=== PATIENT | female | born 1965 ===

== ENCOUNTER 2024-06-16 14:03 | Outpatient (CLI) | payer OTHER, SELFPAY ==
[2024-06-16 14:50] LABS: Basophils Absolute Auto 0.1 K/mm3 (0.0-0.1); Basophils Percent Auto 0.5 % (0.2-1.2); Eosinophils Absolute Auto 0.2 K/mm3 (0-0.3); Eosinophils Percent Auto 1.4 % (0-4.4); Hematocrit 41.7 % (37.0-47.0); Hemoglobin 13.9 g/dL (12.0-15.0); Immature Granulocyte Absolute 0.02 K/mm3 (0.00-0.031); Immature Granulocyte Percent A 0.2 % (0-0.5); Lymphocytes Absolute Auto 3.68 K/mm3 (0.9-3.2); Lymphocytes Percent Auto 35.1 % (18.3-44.2); Mean Corpuscular HGB Conc 33.3 g/dl (32-36); Mean Corpuscular Hemoglobin 30.8 pg (26-34); Mean Corpuscular Volume 92.5 fl (80-100); Mean Platelet Volume 10.5 fl (7.4-10.4); Monocytes Absolute Auto 0.8 K/mm3 (0.1-0.6); Monocytes Percent Auto 7.3 % (2.6-8.5); Neutrophils Absolute Auto 5.8 K/mm3 (1.3-6.7); Neutrophils Percent Auto 55.5 % (45.5-73.1); Platelet Count Result 293 k/mm3 (150-375); Red Blood Count 4.51 M/mm3 (4.2-5.4); Red Cell Distribution Width 12.7 % (11.5-14.5); White Blood Count 10.5 K/mm3 (4.5-10.0)
--- OUTSIDE RECORDS SUMMARY | 2024-06-16 15:56 | XMS_ITS | Patient Health Summary ---
Author Organization [facility] [employer] Address [address] [place] [address] Care Team Providers Care Crosstie Inspector Name Role Phone Unavailable Primary Care Provider Unavailabl e Note from [facility],non-owned Affiliates and Associated Physician Practices is amultiple site organization consisting of ambulatory clinics and hospital sitesin [place], [place], [place] and [place]. This disclosure is being madepursuant to the Care Everywhere program and may not contain all information available regarding this patient. Last updated 17.[facility] Allergies * Advair Diskus(Palpitations) -Low Criticality * Azithromycin(Anaphylaxis,Unknown) -High Criticality * Bupropion(Other) -High Criticality * Choline Fenofibrate(Nausea and/or Vomiting) -High Criticality * Codeine(Unknown) * Duloxetine(Other) -High Criticality * Escitalopram(Unknown,Other) -Low Criticality * Hydrocodone(Unknown) * Hydrocodone-Acetaminophen(Nausea and/or Vomiting) -High Criticality * Levofloxacin(Rash) -Medium Criticality * Lincocin(Unknown) -High Criticality * Lovastatin(Other) -High Criticality * Montelukast(Palpitations) -Low Criticality * Niacin(Rash) -Medium Criticality * Oxytetracycline(Other) -High Criticality * Penicillins(Anaphylaxis,Rash) -High Criticality * Pneumococcal Vaccine(Other) -Low Criticality * Vancomycin(Other) -High Criticality Medications * Be aware that medications may not be up to date on this document. Alwaysverify current medications with the patient. * omeprazole EC (PriLOSEC OTC) 20 MG tablet every 24 hours Social History Tobacco Use Types Packs/Day Years Used Date Smoking Tobacco: Never Smokeless Tobacco: Never Sex and Gender Information Value Date Recorded Sex Assigned at Not on file Gender Identity Not on file Sexual Orientation Not on file Last Filed Vital Signs Vital Sign Reading Time Taken Comments Blood Pressure 123/57 12/21/2021 5:48 PM CDT Pulse 60 12/21/2021 5:48 PM CDT Temperature 37.7 C (99.9 F) 12/21/2021 5:48 PM CDT Respiratory Rate 18 12/21/2021 5:48 PM CDT Oxygen Saturation 100% 12/21/2021 5:48 PM CDT Inhaled Oxygen Concentration - - Weight 78.9 kg (174 lb) 12/21/2021 5:48 PM CDT Height 157.5 cm (5' 2 ) 12/21/2021 5:48 PM CDT Body Mass Index 31.83 12/21/2021 5:48 PM CDT Procedures * XR KNEE BILAT 4VW OR MORE(Performed 03/09/2024) Performed for Pain in both knees, unspecified chronicity * STREP A SCREEN - POCT (IP) URGENT CARE(Performed 12/21/2021) Performed for Fever, unspecified fever cause * SARS-COV-2 (COVID-19) AG (IP) POCT(Performed 12/21/2021) Performed for Fever, unspecified fever cause Results * XR Knee Bilat 4Vw or More (03/09/2024 2:24 PM SILK SCREEN CUTTER) Narrative [facility] [address] - 03/09/2024 2:24 PM SILK SCREEN CUTTER Please see progress note in Epic for results. Joaquín Silveira MD DIAGNOSTIC IMAGING O RDERABLES [facility] [address] * SARS-COV-2 (COVID-19) AG (IP) POCT (12/21/2021 6:01 PM CDT) SARS-CoV-2 Ag Negative Negative [facility] Lot # [id number] [facility] Expiration Date 06/14/22 [facility] Instrument Serial Number [id number] [facility] COVID Internal Control Acceptable Acceptable [facility] Microbiology SPECIMEN FROM NASAL FOSSAE / Unknown 12/21/2021 6:01 PM CDT Narrative [facility] - 12/21/2021 6:18 PM CDT Negative results should be treated as presumptive and confirmation with a molecular assay, if necessary, for patient management, may be performed. Negative results do not rule out COVID-19 and should not be used as the sole basis for treatment or patient management decisions, including infection control decisions. Negative results should be considered in the context of a patient's recent exposures, history and the presence of clinical signs and symptoms consistent with COVID-19. SARS-CoV-2 antigen testing is authorized for use with nasal (Veritor, BinaxNOW, or Ana Cristina) or nasopharyngeal (Ana Cristina) swabs collected from individuals who are suspected of COVID-19 infection by their healthcare provider within the first five days of onset of symptoms. False-positive SARS-CoV-2 test results are more likely to occur when disease prevalence is low (less than 1%). False-negative SARS-CoV-2 test results are more likely to occur when disease prevalence is high (greater than 10%). This test has been authorized by the Food and Drug administration (FDA)under an Emergency Use Authorization (EUA). This test is only authorized for the duration of time the declaration that circumstances exist justifying the authorization of emergency use of in vitro diagnostic tests for detection of SARS-CoV-2 virus and/or diagnosis of COVID-19 infection under section 564(b)(1) of the Act, 21 U.S.C 360bbb-3 (b)(1), unless the authorization is terminated or revoked sooner. Fact Sheets for this EUA assay are available upon request. Grey Patel III, DO LAB - POINT OF CARE ORDERABLES [facility] [address] [place] [address] * STREP A SCREEN - POCT (IP) URGENT CARE (12/21/2021 6:01 PM CDT) Strep A Rapid POCT Negative Negative [facility] QC Verified Yes Yes [facility] Throat ENTIRE THROAT (SURFACE REGION OF NECK) / Unknown 12/21/2021 6:01 PM CDT Grey Patel III, DO LAB - POINT OF CARE ORDERABLES [facility] [address] [place] [address]
--- OUTSIDE RECORDS SUMMARY | 2024-06-16 15:56 | XMS_ITS | Encounter Summary ---
Author Organization [facility] Address [address] [place] [address] Care Team Providers Care Chemical Machine Tender Name Role Phone Unavailable Primary Care Provider Unavailabl e Reason for Referral * Laboratory Services (Routine) - Open Specialty Diagnoses / Procedures Referred By Kristina t Referred To Contact Diagnoses Iron overload Procedures HEMOCHROMATOSIS GENOTYPE Braydon Soto MD [address] [place] [id number] Phone: tel: fax: Referral ID Status Reason Start Date Expiration Date Visits Re quested Visits Authorized [id number] Open 06/16/2024 07/17/2025 1 1 Reason for Visit * Reason Comments Establish Care Encounter Details Date Type Department Care Team (Late st Contact Info) Description 06/16/2024 1:30 PM CDT Office Visit [facility] Oncology and Hematology - [place] [address] [place] [address] [address] [place] [address] Braydon Soto MD [address] [place] [address] Iron overload (Primary Dx) Social History Tobacco Use Types Packs/Day Years Used Date Smoking Tobacco: Never Smokeless Tobacco: Never Alcohol Use Standard Drinks/Week Comments Yes 0 (1 standard drink = 0.6 oz pur e alcohol) Occasionally Comments Unknown Sex and Gender Information Value Date Recorded Sex Assigned at Not on file 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 Gender Identity Not on file Sexual Orientation Not on file documented as of this encounter Last Filed Vital Signs Vital Sign Reading Time Taken Comments Blood Pressure 101/57 06/16/2024 1:25 PM CDT Pulse 70 06/16/2024 1:25 PM CDT Temperature 35.8 C (96.4 F) 06/16/2024 1:25 PM CDT Respiratory Rate 16 06/16/2024 1:25 PM CDT Oxygen Saturation 97% 06/16/2024 1:25 PM CDT Inhaled Oxygen Concentration - - Weight 96.2 kg (212 lb) 06/16/2024 1:25 PM CDT Height 157.5 cm (5' 2 ) 06/16/2024 1:25 PM CDT Body Mass Index 38.78 06/16/2024 1:25 PM CDT documented in this encounter Progress Notes * Braydon Soto MD - 06/16/2024 1:18 PM CDT ThisHematology-oncology consult Note Requesting Physician Primary Care Physician No primary care provider on file. Problem list There is no problem list on file for this patient. Previous TREATMENT ? Measurable Disease ? Reason for Visit Edel Daley is a 58 y.o. female who was referred for consultation for iron overload. History of present illness This is a 58-year-old female with history of morbid obesity status post gastric sleeve surgery in 2018 with more than 120 pound weight loss along with complaint of back and neck pain currently takingtramadol. Patient was referred to me because of elevated serum ferritin. She is taking multivitamintwice a day with 18 mg of iron. She drinks alcohol 3-4 times a year. She denies any history of liver disease. There is no family history of hemochromatosis. Denies any chest pain and shortness of breath. No bleeding and bruising. No other new complaints. Past Medical History Past Medical History: Diagnosis Date Depression Hyperlipidemia Surgical History Past Surgical History: Procedure Laterality Date HX PACEMAKER PLACEMENT 2006 HX SLEEVE GASTROPLASTY 2018 Medications Current Outpatient Medications Medication Sig Dispense Refill CHOLECALCIFEROL, VITAMIN D3, ORAL Take by mouth daily. CYANOCOBALAMIN, VITAMIN B-12, ORAL Take by mouth daily. calcium carbonate/vitamin D3 (CALTRATE 600 + D ORAL) Take 650 mcg by mouth 2 times daily. buPROPion HCL (WELLBUTRIN XL) 150 mg Extended Release 24 hour tablet Take 150 mg by mouth daily in the morning. ARIPiprazole (ABILIFY) 2 mg tablet Take 2 mg by mouth daily. omeprazole (PriLOSEC) 20 mg Capsule, Delayed Release(E.C.) Take 20 mg by mouth daily. MULTIVITAMINS W/C ORAL daily. No current facility-administered medications for this visit. Allergies Allergies Allergen Reactions Azithromycin Anaphylaxis Penicillins Anaphylaxis and Rash Immunizations: There is no immunization history on file for this patient. Family History Family History Problem Relation Name Age of Onset Lung Cancer Father Heart Disease Father Throat Cancer Father Heart Disease Mother Diabetes Mother Heart Disease Sister Diabetes Sister Heart Disease Sister Diabetes Sister No Known Problems Child No Known Problems Child Social History Social History Tobacco Use Smoking status: Never Smokeless tobacco: Never Substance Use Topics Alcohol use: Yes Comment: Occasionally Review of Systems Constitutional: Patient did not mention fever; no night sweats; no anorexia; no weight loss; no fatique NEENT: Patient did not mention headache; no change in vision; no change in hearing; no sore throat;no dysphagia Respiratory: Patient did not mention shortness of breath; no pleuritic chest pain; no cough; no hemoptysis Cardiac: Patient did not mention cardiac-like chest pain; no palpitations; no orthopnea; no PND; noDOE Breasts: Patient did not mention tenderness; no masses GI: Patient did not mention abdominal pain; no nausea; no vomiting; no diarrhea; no hematochezia; no melena : Patient did not mention dysuria; no frequency; no hesitancy; no hematuria 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 No signs of infection or swelling. Eyes: PERRL, conjunctiva normal HEENT: Atraumatic, external ears normal, nose normal, oropharynx moist, no pharyngeal exudates. no sinus tenderness Neck- normal range of motion, no tenderness, supple Respiratory: No respiratory distress, normal breath sounds, no rales, no wheezing Cardiovascular: Normal rate, normal rhythm, no murmurs, no gallops, no rubs GI: Soft, nondistended, normal bowel sounds, nontender, no splenomegaly, no hepatomegaly, no mass, no rebound, no guarding : No costovertebral angle tenderness Musculoskeletal: No edema, no tenderness, no deformities. Back- no tenderness Integument: Well hydrated, no rash, Digits and nails inspection normal Lymphatic: No lymphadenopathy noted Neurologic: Alert & oriented x 3, CN 2-12 normal, normal motor function, normal sensory function, no focal deficits noted Psychiatric: Speech and behavior appropriate ? labs No results found for this or any previous visit (from the past 24 hours). Labs from March 2024 showed iron 99 saturation 31% B12 613 Pathology ? Imaging & Other Studies Performance Status? Assessment / Plan: ? Iron overload. Patient is a 58-year-old pleasant female with history of morbid obesity status post gastric sleeve surgery in 2018 with more than 120 pound weight loss. She has gained 40 pound weight back. She has been dealing with generalized musculoskeletal discomfort especially neck andback pain for which she has been taking tramadol. She is taking multivitamin twice a day with iron.She denies any history of liver disease. She drinks alcohol only 3-4 times a year. I have discussedthe complication of iron overload and management in detail. At this time I will check labs including serum iron, ferritin, iron saturation, CBC, CMP and hemochromatosis genetic testing. I have recommended regular exercise and weight loss. I will discuss the finding with her in 2 weeks. I have answered all the questions to patient satisfaction. Generalized musculoskeletal discomfort. She is on tramadol. GERD. She is on omeprazole. Mood disorder. Patient is on Abilify and Wellbutrin. Thank you very much for allowing me to participate in Edel Daley's evaluation and management. Please feel free to contact if I can be of any further assistance in your patient???s care requiring hematology or oncology evaluation. Sincerely, ? ? Braydon Soto M.D. cell TOBACCO COUNSELING She is not a tobacco/nicotine user. Braydon Soto MD ,06/16/2024 2:00 PM ? Total time spent 60 minutes, two third of the total time spent counseling patient [id number]. CC:? documented in this encounter Plan of Treatment Upcoming Encounters Date Type Department Care Team (Late st Contact Info) Description 06/30/2024 4:00 PM CDT Telephone Check Up [facility] Oncology and Hematology - [place] [address] [facility] [address] [place] [address] Braydon Soto MD [address] [facility] [address] [place] [address] Scheduled Orders Name Type Priority Associated Diagnoses Orde r Schedule CBC WITH DIFFERENTIAL Lab Stat Iron overload Expected: 06/16/2024, Expires: 06/16/2025 COMPREHENSIVE METABOLIC PANEL Lab Stat Iron overload Expected: 06/16/2024, Expires: 06/16/2025 FERRITIN Lab Routine Iron overload Expected: 06/16/2024, Expires: 06/16/2025 IRON, TIBC, AND PERCENT SATURATION Lab Routine Iron overload Expected: 06/16/2024, Expires: 06/16/2025 HEMOCHROMATOSIS GENOTYPE Lab Routine Iron overload Ordered: 06/16/2024 documented as of this encounter Visit Diagnoses Diagnosis Iron overload- Primary Other disorders of iron metabolism documented in this encounter
--- OUTSIDE RECORDS SUMMARY | 2024-06-16 15:56 | XMS_ITS | Clinical Summary ---
Author Organization [facility] [employer] Address [address] [place] [address] Care Team Providers Care Shaker Tender Name Role Phone Unavailable Primary Care Provider Unavailabl e Source Comments [facility],non-owned Affiliates and Associated Physician Practices is amultiple site organization consisting of ambulatory clinics and hospital sitesin [place], [place], [place] and [place]. This disclosure is being madepursuant to the Care Everywhere program and may not contain all information available regarding this patient. Last updated 17.[facility] Allergies Active Allergy Reactions Criticality Noted Date Comments Advair Diskus Palpitations Low 12/20/2020 Azithromycin Anaphylaxis,Unknown High 03/09/2024 Bupropion Other High 10/18/2008 Choline Fenofibrate Nausea and/or Vomiting High 08/10/2011 Codeine Unknown 03/09/2024 Duloxetine Other High 10/18/2008 Escitalopram Unknown,Other Low 12/20/2020 Hydrocodone Unknown 03/09/2024 Hydrocodone-Acetaminophen Nausea and/or Vomiting High 12/20/2020 Levofloxacin Rash Medium 12/20/2020 Lincocin Unknown High 05/22/2009 Lovastatin Other High 11/11/2011 Montelukast Palpitations Low 12/20/2020 Niacin Rash Medium 12/20/2020 Oxytetracycline Other High 12/20/2020 Penicillins Anaphylaxis,Rash High 12/21/2021 Pneumococcal Vaccine Other Low 12/20/2020 Vancomycin Other High 12/20/2020 Medications * Be aware that medications may not be up to date on this document. Alwaysverify current medications with the patient. Medication Sig Dispensed Refills Start Date End Date Status omeprazole EC (PriLOSEC OTC) 20 MG tablet every 24 hours Act hong Social History Tobacco Use Types Packs/Day Years [...] Mass Index 31.83 12/21/2021 5:48 PM CDT Plan of Treatment Upcoming Encounters Date Type Department Care Team (Late st Contact Info) Description 07/13/2024 3:20 PM CDT Office Visit [facility] Health Orthopedics [address] [address] [place] [address] [facility] [address] [place] [address] Health Maintenance Due Date Last Done Comments COLOGUARD (AGES 45-75) - COLON CA SCREENING 1965 COLON MONITORING 1965 COLONOSCOPY - COLON CA SCREENING 1965 CT COLONOGRAPHY - COLON CA SCREENING 1965 Colorectal Cancer Screening 1965 FIT - COLON CA SCREENING 1965 FLEX SIG - COLON CA SCREENING 1965 LIPID TESTING 1965 MAMMOGRAM 1965 PAP SMEAR 1965 HIV SCREENING 1980 HEPATITIS C SCREENING 12/19/1983 DTAP/TDAP/TD VACCINES (1 - Tdap) 1984 HEPATITIS B VACCINE (1 of 3 - 19+ 3-dose series) 1984 ZOSTER VACCINE (1 of 2) 12/24/2015 COVID-19 VACCINE ( season) 2023 01/11/2021, 06/28/2020, 06/07/2020 INFLUENZA VACCINE (#1) 2023 , 01/19/2020, 01/28/2019, Additional history exists DEPRESSION SCREENING 04/06/2024 HIB VACCINE Aged Out No longer eligi ble based on patient's age to complete this topic HPV VACCINE Aged Out No longer eligi ble based on patient's age to complete this topic MENINGOCOCCAL (Group B) VACCINE SHARED DECISION-MAKING Aged Out No longer eligible based on patient's age to complete this topic MENINGOCOCCAL GROUPS A/C/Y/W VACCINE Aged Out No longer eligible based on patient's age to complete this topic
--- OUTSIDE RECORDS SUMMARY | 2024-06-16 15:56 | XMS_ITS | Data Portability ---
Author Organization [place] - [facility] [employer], Main Office Address [address] [place] [address] Assessment Encounter Date Assessment Date Assessment LastModified by Organization Details LastModified Time 03/12/2023 03/12/2023 The patient gave verbal consent using TelePhonic services and the consent is documented in the medical record prior to using the service. The patient has been informed of what a TeleMedicine visit is. Patient is located at home. Provider is located at office. Names and roles of persons in addition to the patient and provider participating in telemedicine services include none. The patient had a 6 minute TeleMedicine consultation via phone call to discuss the following: [email or web address] Not available 03/12/2023 12:03:45 Plan of Treatment Reminders Order Date Submit Date Provider Last Modified By Organization Details Last Modified Time Details Appointments Follow Up 30 2024 07:30A Davian Moffett NP Not available Not available Not available Lab drug screen, urine 2023 024 [email or web address] [facility], [address], [place], [address], 03/23/2024 08:05:17 lipid panel, serum 2023 024 [email or web address] [facility], [address], [place], [address], 03/23/2024 08:05:17 CMP, serum or plasma 2023 024 [email or web address] [facility], [address], [place], [address], 03/23/2024 08:05:17 hepatic function panel, serum 2023 024 [email or web address] [facility], [address], [place], [address], 03/23/2024 08:05:17 HbA1c (hemoglob in A1c), blood 2023 024 [email or web address] [facility], [address], [place], [address], 03/23/2024 08:05:18 vitamin D, 25-hydrox y, total, serum 2023 024 [email or web address] [facility], [address], [place], [address], 03/23/2024 08:05:17 CBC w/ auto diff 2023 024 [email or web address] Vogt, [address], [place], [address], 03/23/2024 08:05:17 cobalamin and folate panel, serum 2023 024 alejandra Vogt, [address], [place], [address], 03/23/2024 08:05:18 magnesium , serum or plasma 2023 024 [email or web address] Vogt, [address], [place], [address], 03/23/2024 08:05:18 iron + total iron-bind ing capacity (TIBC), serum 2023 024 [email or web address] Vogt, [address], [place], [address], 03/23/2024 08:05:18 ferritin, serum or plasma 2023 024 [email or web address] [facility], [address], [place], [address], 03/23/2024 08:05:18 phosphoru s, serum or plasma 2023 024 [email or web address] [facility], [address], [place], [address], 03/23/2024 08:05:18 thiamine, QN, blood 2023 024 [email or web address] [facility], [address], [place], [address], 03/23/2024 08:05:19 Hepatitis C IgG Ab, qual, serum 2023 024 [email or web address] [facility], [address], [place], [address], 03/23/2024 08:05:17 Referral sleep medicine referral - Please call patient to schedule an appointme nt. Thank you. 2023 024 [email or web address] [facility], [address] [place], [address], 03/25/2024 15:09:43 hematolog ist referral - Please call patient to schedule appointme nt 2022 024 [email or web address] Papo Harris DO, [address] [place], [address], 05/07/2023 17:34:01 psychiatr ist referral 2022 023 [email or web address] [facility], [address], [place], [address], 01/08/2023 07:55:27 physical therapist referral - *Please call patient to schedule* 2022 023 [email or web address] 56 [facility], [address] [place], [address], 08/20/2022 10:18:28 Procedures None recorded. Surgeries None recorded. Imaging None recorded. Medication Orders aripipraz ole 2 mg tablet 2023 024 [facility], [address] [place] [address], [address], 03/16/2024 10:13:06 bupropion HCl XL 300 mg 24 hr tablet, extended release 2023 024 [facility], [address] [place] [address], [address], 03/16/2024 10:13:04 omeprazol e 20 mg capsule,d elayed release 2023 024 [facility], [address] [place] [address], [address], 03/16/2024 10:13:05 tramadol 50 mg tablet 2022 023 [facility] #[id number], [address], [place], [address], 03/16/2024 09:37:40 bupropion HCl XL 150 mg 24 hr tablet, extended release 2022 023 [email or web address] 77 [id number], [address], [place], [address], 03/16/2024 09:23:58 venlafaxi ne ER 150 mg capsule,e xtended release 24 hr 2022 023 [email or web address] 77 [facility] #[id number], [address], [place], [address], 03/16/2024 09:24:36 tramadol 50 mg tablet 2022 023 77 [id number], [address], [place], [address], 03/16/2024 09:24:23 Patient TargetsNo targets recorded. Patient Instructions Encounter Date Encounter Id Patient Instructions Last Modified By Organization Details Last Modified Time 03/12/2023 [id number] Due to the COVID-19 (Novel Coronavirus) pandemic, it is within this context (and with the understanding that this method of patient encounter is in the patient s best interest as well as the health and safety of other patients and the public) that telehealth is being provided for this patient encounter rather than a [id number] visit. This patient encounter is appropriate at this time. This patient has been advised of the potential risks and limitations of this mode of treatment (including, but not limited to, the absence of in-person examination) and has agreed to be treated in a remote fashion despite these risks. Any and all of the patient s/patient s family s questions on this issue have been answered, and I have made no promises or guarantees to the patient. The patient has also been advised to contact this office for worsening conditions or problems, and seek emergency medical treatment and/or call 911 if the patient deems either necessary. HPI and/or vitals, if listed, were provided by the patient. [email or web address] Not available 03/12/2023 11:46:13 03/16/2024 [id number] dash diet: care instructions [email or web address] Not available 03/16/2024 10:31:53 Reason for Referral Physical Therapist Referral for Degeneration of lumbar intervertebral disc *Please call patient to schedule* Referring Physician: [facility], Encounter Date: 07/21/2022 Psychiatrist Referral for Mi xed anxiety and depressive disorder Referring Physician: [facility], Encounter Date: 12/11/2022 Please call patient to sched ule appointment Referring Physician: Joselyn Garcia [facility], Encounter Date: 12/11/2022 Sleep Medicine Referral for Obstructive sleep apnea syndrome Please call patient to schedule an appointment. Thank you. Referring Physician: Nelli Moffett [facility], Encounter Date: 03/16/2024 Results Created Date Observation Date Name Description Value Unit Range Abnormal Flag Note LastModifiedBy Organization Detail LastModifiedTime 07/20/1907/20/2022 CBC WITH DIFFE RENTI AL/PL ATELE T WBC 6.7 x10e3 /uL 3.4-10 .8 Not Available [facility] ([facility]) [address] [facility] [address], [place], [address], 07/23/2022 16:13:05 07/20/19 23 07/20/2022 CBC WITH DIFFE RENTI AL/PL ATELE T RBC 4.75 x10e6 /uL 3.77-5 .28 Not Available [facility] ([facility]) [address] [facility] [address], [place], [address], 07/23/2022 16:13:05 07/20/19 23 07/20/2022 CBC WITH DIFFE RENTI AL/PL ATELE T hemoglobin 14.0 g/dL 11.1-1 5.9 Not Available [facility] ([facility]) [address] [facility] [address], [place], [address], 07/23/2022 16:13:05 07/20/19 23 07/20/2022 CBC WITH DIFFE RENTI AL/PL ATELE T hematocrit 43.3 % 34.0-4 6.6 Not Available [facility] ([facility]) [address] [facility] [address], [place], [address], 07/23/2022 16:13:05 07/20/19 23 07/20/2022 CBC WITH DIFFE RENTI AL/PL ATELE T MCV 91 fL 79-97 Not Available [facility] ([facility]) [address] [place], [address], 07/23/2022 16:13:05 07/20/19 23 07/20/2022 CBC WITH DIFFE RENTI AL/PL ATELE T MCH 29.5 pg 26.6-3 3.0 Not Available [facility] ([facility]) [address] [place], [address], 07/23/2022 16:13:05 07/20/19 23 07/20/2022 CBC WITH DIFFE RENTI AL/PL ATELE T MCHC 32.3 g/dL 31.5-3 5.7 Not Available [facility] ([facility]) [address] [facility] [address], [place], [address], 07/23/2022 16:13:05 07/20/19 23 07/20/2022 CBC WITH DIFFE RENTI AL/PL ATELE T RDW 12.0 % 11.7-1 5.4 Not Available [facility] ([facility]) [address] [facility] [address], [place], [address], 07/23/2022 16:13:05 07/20/19 23 07/20/2022 CBC WITH DIFFE RENTI AL/PL ATELE T platelets 286 x10e3 /uL 150-45 0 Not Available [facility] ([facility]) [address] [facility] [address], [place], [address], 07/23/2022 16:13:05 07/20/19 23 07/20/2022 CBC WITH DIFFE RENTI AL/PL ATELE T neutrophils 53 % not estab. Not Available [facility] ([facility]) [address] [facility] [address], [place], [address], 07/23/2022 16:13:05 07/20/19 23 07/20/2022 CBC WITH DIFFE RENTI AL/PL ATELE T lymphs 37 % not estab. Not Available [facility] ([facility]) [address] [facility] [address], [place], [address], 07/23/2022 16:13:05 07/20/19 23 07/20/2022 CBC WITH DIFFE RENTI AL/PL ATELE T monocytes 7 % not estab. Not Available [facility] ([facility]) [address] [facility] [address], [place], [address], 07/23/2022 16:13:05 07/20/19 23 07/20/2022 CBC WITH DIFFE RENTI AL/PL ATELE T eos 2 % not estab. Not Available [facility] ([facility]) [address] [facility] [address], [place], [address], 07/23/2022 16:13:05 07/20/19 23 07/20/2022 CBC WITH DIFFE RENTI AL/PL ATELE T basos 1 % not estab. Not Available [facility] ([facility]) [address] [facility] [address], [place], [address], 07/23/2022 16:13:05 07/20/19 23 07/20/2022 CBC WITH DIFFE RENTI AL/PL ATELE T immature cells SCHOOL PHOTOGRAPHER Not Available [facility] ([facility]) [address] [facility] [address], [place], [address], 07/23/2022 16:13:05 07/20/19 23 07/20/2022 CBC WITH DIFFE RENTI AL/PL ATELE T neutrophils (absolute) 3.6 x10e3 /uL 1.4-7. 0 Not Available [facility] ([facility]) [address] [facility] [address], [place], [address], 07/23/2022 16:13:05 07/20/19 23 07/20/2022 CBC WITH DIFFE RENTI AL/PL ATELE T lymphs (absolute) 2.5 x10e3 /uL 0.7-3. 1 Not Available [facility] ([facility]) [address] [facility] [address], [place], [address], 07/23/2022 16:13:05 07/20/19 23 07/20/2022 CBC WITH DIFFE RENTI AL/PL ATELE T monocytes(ab solute) 0.5 x10e3 /uL 0.1-0. 9 Not Available [facility] ([facility]) [address] [facility] [address], [place], [address], 07/23/2022 16:13:05 07/20/19 23 07/20/2022 CBC WITH DIFFE RENTI AL/PL ATELE T eos (absolute) 0.1 x10e3 /uL 0.0-0. 4 Not Available [facility] ([facility]) [address] [facility] [address], [place], [address], 07/23/2022 16:13:05 07/20/19 23 07/20/2022 CBC WITH DIFFE RENTI AL/PL ATELE T baso (absolute) 0.1 x10e3 /uL 0.0-0. 2 Not Available [facility] ([facility]) [address] [facility] [address], [place], [address], 07/23/2022 16:13:05 07/20/19 23 07/20/2022 CBC WITH DIFFE RENTI AL/PL ATELE T immature granulocytes 0 % not estab. Not Available [facility] ([facility]) [address] [place], [address], 07/23/2022 16:13:05 07/20/19 23 07/20/2022 CBC WITH DIFFE RENTI AL/PL ATELE T immature grans (abs) 0.0 x10e3 /uL 0.0-0. 1 Not Available [facility] ([facility]) [address] [place], [address], 07/23/2022 16:13:05 07/20/19 23 07/20/2022 CBC WITH DIFFE RENTI AL/PL ATELE T NRBC [employer]CHOOL PHOTOGRAPHER Not Available [facility] ([facility]) [address] [place], [address], 07/23/2022 16:13:05 07/20/19 23 07/20/2022 CBC WITH DIFFE RENTI AL/PL ATELE T hematology comments: SCHOOL PHOTOGRAPHER Not Available [facility] ([facility]) [address] [place], [address], 07/23/2022 16:13:05 07/20/19 23 07/20/2022 COMP. METAB OLIC PANEL (14) glucose 83 mg/dL 70-99 Not Available [facility] ([facility]) [address] [facility] [place], [address], 07/23/2022 16:13:06 07/20/19 23 07/20/2022 COMP. METAB OLIC PANEL (14) BUN 14 mg/dL 6-24 Not Available [facility] ([facility]) [address] [facility] [place], [address], 07/23/2022 16:13:06 07/20/19 23 07/20/2022 COMP. METAB OLIC PANEL (14) creatinine 0.83 mg/dL 0.57-1 .00 Not Available [facility] ([facility]) [address] [place], [address], 07/23/2022 16:13:06 07/20/19 23 07/20/2022 COMP. METAB OLIC PANEL (14) eGFR 83 mL/mi n/1.7 3 >59 Not Available [facility] ([facility]) [address] [facility] [place], [address], 07/23/2022 16:13:06 07/20/19 23 07/20/2022 COMP. METAB OLIC PANEL (14) BUN/creatini ne ratio 17 9-23 Not Available [facility] ([facility]) [address] [place], [address], 07/23/2022 16:13:06 07/20/19 23 07/20/2022 COMP. METAB OLIC PANEL (14) sodium 144 mmol/ L 134-14 4 Not Available [facility] ([facility]) [address] [place], [address], 07/23/2022 16:13:06 07/20/19 23 07/20/2022 COMP. METAB OLIC PANEL (14) potassium 4.4 mmol/ L 3.5-5. 2 Not Available [facility] ([facility]) [address] [place], [address], 07/23/2022 16:13:06 07/20/19 23 07/20/2022 COMP. METAB OLIC PANEL (14) chloride 106 mmol/ L 96-106 Not Available [facility] ([facility]) [address] [facility] [address], [place], [address], 07/23/2022 16:13:06 07/20/19 23 07/20/2022 COMP. METAB OLIC PANEL (14) carbon dioxide, total 24 mmol/ L 20-29 Not Available [facility] ([facility]) [address] [facility] [address], [place], [address], 07/23/2022 16:13:06 07/20/19 23 07/20/2022 COMP. METAB OLIC PANEL (14) calcium 9.5 mg/dL 8.7-10 .2 Not Available [facility] ([facility]) [address] [facility] [address], [place], [address], 07/23/2022 16:13:06 07/20/19 23 07/20/2022 COMP. METAB OLIC PANEL (14) protein, total 7.0 g/dL 6.0-8. 5 Not Available [facility] ([facility]) [address] [facility] [address], [place], [address], 07/23/2022 16:13:06 07/20/19 23 07/20/2022 COMP. METAB OLIC PANEL (14) albumin 4.2 g/dL 3.8-4. 9 Not Available [facility] ([facility]) [address] [facility] [place], [address], 07/23/2022 16:13:06 07/20/19 23 07/20/2022 COMP. METAB OLIC PANEL (14) globulin, total 2.8 g/dL 1.5-4. 5 Not Available [facility] ([facility]) [address] [facility] [place], [address], 07/23/2022 16:13:06 04/15/20 23 07/20/2022 COMP. METAB OLIC PANEL (14) A/G ratio 1.5 1.2-2. 2 Not Available [facility] ([facility]) [address] [place], [address], 07/23/2022 16:13:06 07/20/19 23 07/20/2022 COMP. METAB OLIC PANEL (14) bilirubin, total 0.4 mg/dL 0.0-1. 2 Not Available [facility] ([facility]) [address] [place], [address], 07/23/2022 16:13:06 07/20/19 23 07/20/2022 COMP. METAB OLIC PANEL (14) alkaline phosphatase 58 IU/L 44-121 Not Available [facility] ([facility]) [address] [place], [address], 07/23/2022 16:13:06 07/20/19 23 07/20/2022 COMP. METAB OLIC PANEL (14) AST (SGOT) 20 IU/L 0-40 Not Available [facility] ([facility]) [address] [place], [address], 07/23/2022 16:13:06 07/20/19 23 07/20/2022 COMP. METAB OLIC PANEL (14) ALT (SGPT) 19 IU/L 0-32 Not Available [facility] ([facility]) [address] [place], [address], 07/23/2022 16:13:06 07/20/19 23 07/20/2022 LIPID PANEL cholesterol, total 245 mg/dL 100-19 9 above high normal Not Available [facility] ([facility]) [address] [place], [address], 07/23/2022 16:13:06 07/20/19 23 07/20/2022 LIPID PANEL triglyceride s 148 mg/dL 0-149 Not Available [facility] ([facility]) [address] [place], [address], 07/23/2022 16:13:06 07/20/19 23 07/20/2022 LIPID PANEL HDL cholesterol 53 mg/dL >39 Not Available [facility] ([facility]) [address] [place], [address], 07/23/2022 16:13:06 07/20/19 23 07/20/2022 LIPID PANEL VLDL cholesterol eric 27 mg/dL 5-40 Not Available [facility] ([facility]) [address] [place], [address], 07/23/2022 16:13:06 07/20/19 23 07/20/2022 LIPID PANEL LDL chol calc ([facility]) 165 mg/dL 0-99 above high normal Not Available [facility] ([facility]) [address] [place], [address], 07/23/2022 16:13:06 07/20/19 23 07/20/2022 LIPID PANEL comment: SCHOOL PHOTOGRAPHER Not Available [facility] ([facility]) [address] [place], [address], 07/23/2022 16:13:06 07/20/19 23 07/20/2022 IRON AND TIBC iron bind.cap.(TI BC) 280 ug/dL 250-45 0 Not Available [facility] ([facility]) [address] [place], [address], 07/23/2022 16:13:07 07/20/19 23 07/20/2022 IRON AND TIBC UIBC 149 ug/dL 131-42 5 Not Available [facility] ([facility]) [address] [place], [address], 07/23/2022 16:13:07 07/20/19 23 07/20/2022 IRON AND TIBC iron 131 ug/dL 27-159 Not Available [facility] ([facility]) [address] [facility] [address], [place], [address], 07/23/2022 16:13:07 07/20/1907/20/2022 IRON AND TIBC iron saturation 47 % 15-55 Not Available [facility] ([facility]) [address] [facility] [address], [place], [address], 07/23/2022 16:13:07 07/20/19 23 07/20/2022 VITAM IN B12 AND FOLAT E vitamin B12 992 pg/mL 232-12 45 Not Available [facility] ([facility]) [address] [facility], [place], [address], 07/23/2022 16:13:08 07/20/19 23 07/20/2022 VITAM IN B12 AND FOLAT E folate (folic acid), serum >20.0 NG/mL >3.0 A serum folat e elroy ntrat ion of less than 3.1 ng/mL is consi dered to repre sent clini eric defic iency . Not Available [facility] ([facility]) [address] [facility] [address], [place], [address], 07/23/2022 16:13:08 07/20/1907/20/2022 HEMOG LOBIN A1C hemoglobin A1C 5.1 % 4.8-5. 6 Predi abete s: 5.7 - 6.4 Diabe britney: >6.4 Glyce milvia contr ol for adult s with diabe britney: <7.0 Not Available [facility] ([facility]) [address] [facility] [address], [place], [address], 07/23/2022 16:13:08 07/20/1907/20/2022 VITAM IN D, 25-HY DROXY vitamin D, 25-hydroxy 73.4 NG/mL 30.0-1 00.0 Vitam in D defic iency has been defin ed by the Insti tute of Medic ine and an Endoc rine Socie ty pract ice guide line as a level of serum 25-OH vitam in D less than 20 ng/mL (1,2) . The Endoc rine Socie ty went on to furth er defin e vitam in D insuf ficie ncy as a level betwe en 21 and 29 ng/mL (2). 1. IOM (Inst itute of Medic ine). 2010. Dieta ry refer ence intak es for calci um and D. Nicole nicholas [place]: [facility] . 2. James wells MF, Miguel milian [place], Bisch off-F errar i TELLO, et al. Evalu ation , treat ment, and preve ntion of vitam in D defic iency : an Endoc rine Socie ty clini eric pract ice guide line. JCEM. 2010; 96(7) :1911 -30. Not Available [facility] ([facility]) [address] [place], [address], 07/23/2022 16:13:09 07/20/19 23 07/23/2022 VITAM IN B1 (THIA MINE) , BLOOD vit. B1, whole blood 182.8 nmol/ L 66.5-2 00.0 Not Available [facility] ([facility]) [address] [place], [address], 07/23/2022 16:13:10 07/20/19 23 07/20/2022 PHOSP HORUS phosphorus 3.4 mg/dL 3.0-4. 3 Not Available [facility] ([facility]) [address] [place], [address], 07/23/2022 16:13:10 07/20/19 23 07/20/2022 MAGNE SIUM magnesium 2.0 mg/dL 1.6-2. 3 Not Available [facility] ([facility]) [address] [place], [address], 07/23/2022 16:13:11 07/20/19 23 07/20/2022 BELLO TIN ferritin 359 NG/mL 15-150 above high normal Not Available [facility] ([facility]) [address] [facility] [address], [place], [address], 07/23/2022 16:13:11 07/20/19 23 07/19/2022 AMBIG ABBRE V CMP14 DEFAU LT ambig abbrev CMP14 default Commen t A hand- writt en panel /prof ile was recei bi from your offic e. In accor dance with the [facility] Ambig uous Test Code Polic y dated October 2002, we have compl eted your order by using the close st curre ntly or forme rly recog nized AMA panel . We have samson jensen Compr ehens hong Metab olic Panel (14), Test Code #[address]. If this is not the testi ng you wishe d to recei ve on this speci men, pleas e conta ct the [facility] Clien t Inqui ry/Te chnic al Servi brenda Depar tment to nestor fy the test order . We appre ciate your busin ess. Not Available [facility] ([facility]) [address] [facility] [address], [place], [address], 07/23/2022 16:13:12 07/20/19 23 07/19/2022 AMBIG ABBRE V LP DEFAU LT ambig abbrev LP default Commen t A hand- writt en panel /prof ile was recei bi from your offic e. In accor dance with the [facility] Ambig uous Test Code Polic y dated October 2002, we have compl eted your order by using the close st curre ntly or forme rly recog nized AMA panel . We have samson jensen Lipid Panel , Test Code #[address]. If this is not the testi ng you wishe d to recei ve on this speci men, pleas e conta ct the [facility] Clien t Inqui ry/Te chnic al Servi brneda Depar tment to nestor fy the test order . We appre ciate your busin ess. Not Available [facility] ([facility]) [address] [facility], [place], [address], 07/23/2022 16:13:12 12/07/1912/07/2022 CBC WITH DIFFE RENTI AL/PL ATELE T WBC 7.2 x10e3 /uL 3.4-10 .8 Not Available [facility] ([facility]) [address] [facility], [place], [address], 12/07/2022 07:07:37 12/07/19 23 12/07/2022 CBC WITH DIFFE RENTI AL/PL ATELE T RBC 4.37 x10e6 /uL 3.77-5 .28 Not Available [facility] ([facility]) [address] [facility], [place], [address], 12/07/2022 07:07:37 12/07/19 23 12/07/2022 CBC WITH DIFFE RENTI AL/PL ATELE T hemoglobin 13.4 g/dL 11.1-1 5.9 Not Available [facility] ([facility]) [address] [facility], [place], [address], 12/07/2022 07:07:37 12/07/19 23 12/07/2022 CBC WITH DIFFE RENTI AL/PL ATELE T hematocrit 40.3 % 34.0-4 6.6 Not Available [facility] ([facility]) [address] [facility], [place], [address], 12/07/2022 07:07:37 12/07/19 23 12/07/2022 CBC WITH DIFFE RENTI AL/PL ATELE T MCV 92 fL 79-97 Not Available [facility] ([facility]) [address] [facility], [place], [address], 12/07/2022 07:07:37 12/07/19 23 12/07/2022 CBC WITH DIFFE RENTI AL/PL ATELE T MCH 30.7 pg 26.6-3 3.0 Not Available [facility] ([facility]) [address], [place], [address], 12/07/2022 07:07:37 12/07/1912/07/2022 CBC WITH DIFFE RENTI AL/PL ATELE T MCHC 33.3 g/dL 31.5-3 5.7 Not Available [facility] ([facility]) [address] [facility], [place], [address], 12/07/2022 07:07:37 12/07/19 23 12/07/2022 CBC WITH DIFFE RENTI AL/PL ATELE T RDW 11.9 % 11.7-1 5.4 Not Available [facility] ([facility]) [address] [facility], [place], [address], 12/07/2022 07:07:37 12/07/19 23 12/07/2022 CBC WITH DIFFE RENTI AL/PL ATELE T platelets 255 x10e3 /uL 150-45 0 Not Available [facility] [facility]) [address] [facility], [place], [address], 12/07/2022 07:07:37 12/07/1912/07/2022 CBC WITH DIFFE RENTI AL/PL ATELE T neutrophils 57 % not estab. Not Available [facility] ([facility]) [address] [facility], [place], [address], 12/07/2022 07:07:37 12/07/1912/07/2022 CBC WITH DIFFE RENTI AL/PL ATELE T lymphs 33 % not estab. Not Available [facility] ([facility]) [address] [facility], [place], [address], 12/07/2022 07:07:37 12/07/19 23 12/07/2022 CBC WITH DIFFE RENTI AL/PL ATELE T monocytes 7 % not estab. Not Available [facility] ([facility]) [address] [facility], [place], [address], 12/07/2022 07:07:37 12/07/19 23 12/07/2022 CBC WITH DIFFE RENTI AL/PL ATELE T eos 2 % not estab. Not Available [facility] ([facility]) [address] [facility], [place], [address], 12/07/2022 07:07:37 12/07/19 23 12/07/2022 CBC WITH DIFFE RENTI AL/PL ATELE T basos 1 % not estab. Not Available [facility] ([facility]) [address] [place], [address], 12/07/2022 07:07:37 12/07/1912/07/2022 CBC WITH DIFFE RENTI AL/PL ATELE T immature cells SCHOOL PHOTOGRAPHER Not Available [facility] ([facility]) [address] [place], [address], 12/07/2022 07:07:37 12/07/1912/07/2022 CBC WITH DIFFE RENTI AL/PL ATELE T neutrophils (absolute) 4.1 x10e3 /uL 1.4-7. 0 Not Available [facility] ([facility]) [address] [place], [address], 12/07/2022 07:07:37 12/07/1912/07/2022 CBC WITH DIFFE RENTI AL/PL ATELE T lymphs (absolute) 2.4 x10e3 /uL 0.7-3. 1 Not Available [facility] ([facility]) [address] [place], [address], 12/07/2022 07:07:37 12/07/1912/07/2022 CBC WITH DIFFE RENTI AL/PL ATELE T monocytes(ab solute) 0.5 x10e3 /uL 0.1-0. 9 Not Available [facility] ([facility]) [address] [place], [address], 12/07/2022 07:07:37 12/07/19 23 12/07/2022 CBC WITH DIFFE RENTI AL/PL ATELE T eos (absolute) 0.1 x10e3 /uL 0.0-0. 4 Not Available [facility] ([facility]) [address] [facility], [place], [address], 12/07/2022 07:07:37 12/07/19 23 12/07/2022 CBC WITH DIFFE RENTI AL/PL ATELE T baso (absolute) 0.1 x10e3 /uL 0.0-0. 2 Not Available [facility] ([facility]) [address] [facility], [place], [address], 12/07/2022 07:07:37 12/07/19 23 12/07/2022 CBC WITH DIFFE RENTI AL/PL ATELE T immature granulocytes 0 % not estab. Not Available [facility] ([facility]) [address] [facility], [place], [address], 12/07/2022 07:07:37 12/07/19 23 12/07/2022 CBC WITH DIFFE RENTI AL/PL ATELE T immature grans (abs) 0.0 x10e3 /uL 0.0-0. 1 Not Available [facility] ([facility]) [address] [facility], [place], [address], 12/07/2022 07:07:37 12/07/19 23 12/07/2022 CBC WITH DIFFE RENTI AL/PL ATELE T NRBC SCHOOL PHOTOGRAPHER Not Available [facility] ([facility]) [address] [facility], [place], [address], 12/07/2022 07:07:37 12/07/19 23 12/07/2022 CBC WITH DIFFE RENTI AL/PL ATELE T hematology comments: SCHOOL PHOTOGRAPHER Not Available [facility] ([facility]) [address] [facility], [place], [address], 12/07/2022 07:07:37 12/07/19 23 12/07/2022 IRON AND TIBC iron bind.cap.(TI BC) 255 ug/dL 250-45 0 Not Available [facility] ([facility]) [address] [place], [address], 12/07/2022 07:07:39 12/07/19 23 12/07/2022 IRON AND TIBC UIBC 121 ug/dL 131-42 5 below low normal Not Available [facility] ([facility]) [address] [place], [address], 12/07/2022 07:07:39 12/07/19 23 12/07/2022 IRON AND TIBC iron 134 ug/dL 27-159 Not Available [facility] ([facility]) [address] [place], [address], 12/07/2022 07:07:39 12/07/19 23 12/07/2022 IRON AND TIBC iron saturation 53 % 15-55 Not Available [facility] ([facility]) [address] [place], [address], 12/07/2022 07:07:39 12/07/19 23 12/07/2022 BELLO TIN ferritin 322 NG/mL 15-150 above high normal Not Available [facility] ([facility]) [address] [place], [address], 12/07/2022 07:07:40 04/02/20 24 04/03/2024 CBC WITH DIFFE RENTI AL/PL ATELE T WBC 11.6 x10e3 /uL 3.4-10 .8 above high normal Not Available [facility] ([facility]) [address] [place], [address], 04/06/2024 07:11:04 04/02/20 24 04/03/2024 CBC WITH DIFFE RENTI AL/PL ATELE T RBC 4.92 x10e6 /uL 3.77-5 .28 normal Not Available [facility] ([facility]) [address] [place], [address], 04/06/2024 07:11:04 04/02/20 24 04/03/2024 CBC WITH DIFFE RENTI AL/PL ATELE T hemoglobin 14.9 g/dL 11.1-1 5.9 normal Not Available [facility] ([facility]) [address] [place], [address], 04/06/2024 07:11:04 04/02/20 24 04/03/2024 CBC WITH DIFFE RENTI AL/PL ATELE T hematocrit 44.8 % 34.0-4 6.6 normal Not Available [facility] ([facility]) [address] [facility], [place], [address], 04/06/2024 07:11:04 04/02/20 24 04/03/2024 CBC WITH DIFFE RENTI AL/PL ATELE T MCV 91 fL 79-97 normal Not Available [facility] ([facility]) [address] [place], [address], 04/06/2024 07:11:04 04/02/20 24 04/03/2024 CBC WITH DIFFE RENTI AL/PL ATELE T MCH 30.3 pg 26.6-3 3.0 normal Not Available [facility] ([facility]) [address] [place], [address], 04/06/2024 07:11:04 04/02/20 24 04/03/2024 CBC WITH DIFFE RENTI AL/PL ATELE T MCHC 33.3 g/dL 31.5-3 5.7 normal Not Available [facility] ([facility]) [address] [place], [address], 04/06/2024 07:11:04 04/02/20 24 04/03/2024 CBC WITH DIFFE RENTI AL/PL ATELE T RDW 11.9 % 11.7-1 5.4 Not Available [facility] ([facility]) [address] [facility], [place], [address], 04/06/2024 07:11:04 04/02/20 24 04/03/2024 CBC WITH DIFFE RENTI AL/PL ATELE T platelets 308 x10e3 /uL 150-45 0 normal Not Available [facility] ([facility]) [address] [facility], [place], [address], 04/06/2024 07:11:04 04/02/20 24 04/03/2024 CBC WITH DIFFE RENTI AL/PL ATELE T neutrophils 69 % not estab. normal Not Available [facility] ([facility]) [address] [facility], [place], [address], 04/06/2024 07:11:04 04/02/20 24 04/03/2024 CBC WITH DIFFE RENTI AL/PL ATELE T lymphs 23 % not estab. normal Not Available [facility] ([facility]) [address] [facility], [place], [address], 04/06/2024 07:11:04 04/02/20 24 04/03/2024 CBC WITH DIFFE RENTI AL/PL ATELE T monocytes 6 % not estab. normal Not Available [facility] ([facility]) [address] [facility], [place], [address], 04/06/2024 07:11:04 04/02/20 24 04/03/2024 CBC WITH DIFFE RENTI AL/PL ATELE T eos 2 % not estab. normal Not Available [facility] ([facility]) [address] [facility], [place], [address], 04/06/2024 07:11:04 04/02/20 24 04/03/2024 CBC WITH DIFFE RENTI AL/PL ATELE T basos 0 % not estab. normal Not Available [facility] ([facility]) [address] [facility], [place], [address], 04/06/2024 07:11:04 04/02/20 24 04/03/2024 CBC WITH DIFFE RENTI AL/PL ATELE T immature cells SCHOOL PHOTOGRAPHER Not Available [facility] ([facility]) [address] [facility], [place], [address], 04/06/2024 07:11:04 04/02/20 24 04/03/2024 CBC WITH DIFFE RENTI AL/PL ATELE T neutrophils (absolute) 8.0 x10e3 /uL 1.4-7. 0 above high normal Not Available [facility] ([facility]) [address] [place], [address], 04/06/2024 07:11:04 04/02/20 24 04/03/2024 CBC WITH DIFFE RENTI AL/PL ATELE T lymphs (absolute) 2.7 x10e3 /uL 0.7-3. 1 normal Not Available [facility] ([facility]) [address] [place], [address], 04/06/2024 07:11:04 04/02/20 24 04/03/2024 CBC WITH DIFFE RENTI AL/PL ATELE T monocytes(ab solute) 0.7 x10e3 /uL 0.1-0. 9 normal Not Available [facility] ([facility]) [address] [place], [address], 04/06/2024 07:11:04 04/02/20 24 04/03/2024 CBC WITH DIFFE RENTI AL/PL ATELE T eos (absolute) 0.2 x10e3 /uL 0.0-0. 4 normal Not Available [facility] ([facility]) [address] [place], [address], 04/06/2024 07:11:04 04/02/20 24 04/03/2024 CBC WITH DIFFE RENTI AL/PL ATELE T baso (absolute) 0.1 x10e3 /uL 0.0-0. 2 normal Not Available [facility] ([facility]) [address] [facility], [place], [address], 04/06/2024 07:11:04 04/02/20 24 04/03/2024 CBC WITH DIFFE RENTI AL/PL ATELE T immature granulocytes 0 % not estab. Not Available [facility] ([facility]) [address] [facility], [place], [address], 04/06/2024 07:11:04 04/02/20 24 04/03/2024 CBC WITH DIFFE RENTI AL/PL ATELE T immature grans (abs) 0.0 x10e3 /uL 0.0-0. 1 Not Available [facility] ([facility]) [address] [facility], [place], [address], 04/06/2024 07:11:04 04/02/20 24 04/03/2024 CBC WITH DIFFE RENTI AL/PL ATELE T NRBC SCHOOL PHOTOGRAPHER Not Available [facility] ([facility]) [address] [facility], [place], [address], 04/06/2024 07:11:04 04/02/20 24 04/03/2024 CBC WITH DIFFE RENTI AL/PL ATELE T hematology comments: SCHOOL PHOTOGRAPHER Not Available [facility] ([facility]) [address] [facility], [place], [address], 04/06/2024 07:11:04 04/02/20 24 04/03/2024 COMP. METAB OLIC PANEL (14) glucose 89 mg/dL 70-99 normal Not Available [facility] ([facility]) [address] [facility] [place], [address], 04/06/2024 07:11:05 04/02/20 24 04/03/2024 COMP. METAB OLIC PANEL (14) BUN 11 mg/dL 6-24 normal Not Available [facility] ([facility]) [address] [facility], [place], [address], 04/06/2024 07:11:05 04/02/20 24 04/03/2024 COMP. METAB OLIC PANEL (14) creatinine 0.95 mg/dL 0.57-1 .00 normal Not Available [facility] ([facility]) [address], [place], [address], 04/06/2024 07:11:05 04/02/20 24 04/03/2024 COMP. METAB OLIC PANEL (14) eGFR 69 mL/mi n/1.7 3 >59 normal Not Available [facility] ([facility]) [address] [place], [address], 04/06/2024 07:11:05 04/02/20 24 04/03/2024 COMP. METAB OLIC PANEL (14) BUN/creatini ne ratio 12 9-23 normal Not Available [facility] ([facility]) [address], [place], [address], 04/06/2024 07:11:05 04/02/20 24 04/03/2024 COMP. METAB OLIC PANEL (14) sodium 142 mmol/ L 134-14 4 normal Not Available [facility] ([facility]) [address], [place], [address], 04/06/2024 07:11:05 04/02/20 24 04/03/2024 COMP. METAB OLIC PANEL (14) potassium 4.3 mmol/ L 3.5-5. 2 normal Not Available [facility] ([facility]) [address], [place], [address], 04/06/2024 07:11:05 04/02/20 24 04/03/2024 COMP. METAB OLIC PANEL (14) chloride 102 mmol/ L 96-106 normal Not Available [facility] ([facility]) [address] [facility], [place], [address], 04/06/2024 07:11:05 04/02/20 24 04/03/2024 COMP. METAB OLIC PANEL (14) carbon dioxide, total 22 mmol/ L - normal Not Available [facility] ([facility]) [address] [facility] [place], [address], 04/06/2024 07:11:05 04/02/20 24 04/03/2024 COMP. METAB OLIC PANEL (14) calcium 9.8 mg/dL 8.7-10 .2 normal Not Available [facility] ([facility]) [address] [facility], [place], [address], 04/06/2024 07:11:05 04/02/20 24 04/03/2024 COMP. METAB OLIC PANEL (14) protein, total 7.3 g/dL 6.0-8. 5 normal Not Available [facility] ([facility]) [address] [facility] [place], [address], 04/06/2024 07:11:05 04/02/20 24 04/03/2024 COMP. METAB OLIC PANEL (14) albumin 4.3 g/dL 3.8-4. 9 normal Not Available [facility] ([facility]) [address] [facility] [place], [address], 04/06/2024 07:11:05 04/02/20 24 04/03/2024 COMP. METAB OLIC PANEL (14) globulin, total 3.0 g/dL 1.5-4. 5 Not Available [facility] ([facility]) [address] [facility] [place], [address], 04/06/2024 07:11:05 04/02/20 24 04/03/2024 COMP. METAB OLIC PANEL (14) bilirubin, total 0.4 mg/dL 0.0-1. 2 normal Not Available [facility] ([facility]) [address] [facility] [place], [address], 04/06/2024 07:11:05 04/02/20 24 04/03/2024 COMP. METAB OLIC PANEL (14) alkaline phosphatase 72 IU/L 44-121 normal Not Available [facility] ([facility]) [address] [place], [address], 04/06/2024 07:11:05 04/02/20 24 04/03/2024 COMP. METAB OLIC PANEL (14) AST (SGOT) 17 IU/L 0-40 normal Not Available [facility] ([facility]) [address] [facility], [place], [address], 04/06/2024 07:11:05 04/02/20 24 04/03/2024 COMP. METAB OLIC PANEL (14) ALT (SGPT) 16 IU/L 0-32 normal Not Available [facility] ([facility]) [address] [place], [address], 04/06/2024 07:11:05 04/02/20 24 04/02/2024 35197 0 7 DRUG- SCR drug screen comment: COMMEN T This stephanie sis is perfo rmed by immun oassa y. Posit hong findi ngs are uncon firme d stephanie tical test resul ts; if resul ts do not suppo rt expec milvia clini eric findi ng, confi rmati on by an alter jerry metho dolog y is recom stella d. Patie nt metab olic varia bles, speci fic drug chemi stry, and speci men johnny cteri stics can affec t test outco me. Techn ical consu ltati on is avail able at reshma chester [email or web address], or call toll free [phone]. Not Available [facility] ([facility]) [address] [place], [address], 04/06/2024 07:11:06 04/02/20 24 04/05/2024 78906 0 7 DRUG- SCR amphetamines , urine NEGATI VE NG/mL cutoff =1000 Amphe tamin e test inclu brianna Amphe tamin e and Metha mphet amine . Not Available [facility] ([facility]) [address] [place], [address], 04/06/2024 07:11:06 04/02/20 24 04/05/2024 00037 0 7 DRUG- SCR barbiturates NEGATI VE NG/mL cutoff =200 Not Available [facility] ([facility]) [address] [place], [address], 04/06/2024 07:11:06 04/02/20 24 04/05/2024 84074 0 7 DRUG- SCR benzodiazepi jasmin NEGATI VE NG/mL cutoff =300 Not Available [facility] ([facility]) [address] [place], [address], 04/06/2024 07:11:06 04/02/20 24 04/05/2024 75480 0 7 DRUG- SCR cannabinoid NEGATI VE NG/mL cutoff =50 Not Available [facility] ([facility]) [address] [place], [address], 04/06/2024 07:11:06 04/02/20 24 04/05/2024 14035 0 7 DRUG- SCR cocaine (metab.) NEGATI VE NG/mL cutoff =300 Not Available [facility] ([facility]) [address] [place], [address], 04/06/2024 07:11:06 04/02/20 24 04/05/2024 15385 0 7 DRUG- SCR opiates NEGATI VE NG/mL cutoff =300 Opiat e test inclu brianna Codei ne and Morph ine only. Not Available [facility] ([facility]) [address] [place], [address], 04/06/2024 07:11:06 04/02/20 24 04/05/2024 35003 0 7 DRUG- SCR phencyclidin e NEGATI VE NG/mL cutoff =25 Not Available [facility] ([facility]) [address] [facility], [place], [address], 04/06/2024 07:11:06 04/02/20 24 04/03/2024 HEPAT IC FUNCT ION PANEL (7) bilirubin, direct 0.10 mg/dL 0.00-0 .40 normal Not Available [facility] ([facility]) [address] [facility] [place], [address], 04/06/2024 07:11:07 04/02/20 24 04/03/2024 LIPID PANEL cholesterol, total 273 mg/dL 100-19 9 above high normal Not Available [facility] ([facility]) [address] [facility] [place], [address], 04/06/2024 07:11:08 04/02/20 24 04/03/2024 LIPID PANEL triglyceride s 173 mg/dL 0-149 above high normal Not Available [facility] ([facility]) [address] [facility], [place], [address], 04/06/2024 07:11:08 04/02/20 24 04/03/2024 LIPID PANEL HDL cholesterol 64 mg/dL >39 normal Not Available [facility] ([facility]) [address] [facility], [place], [address], 04/06/2024 07:11:08 04/02/20 24 04/03/2024 LIPID PANEL VLDL cholesterol eric 32 mg/dL 5-40 Not Available [facility] ([facility]) [address] [facility] [place], [address], 04/06/2024 07:11:08 04/02/20 24 04/03/2024 LIPID PANEL LDL chol calc ([facility]) 177 mg/dL 0-99 above high normal Not Available [facility] ([facility]) [address] [facility] [place], [address], 04/06/2024 07:11:08 04/02/20 24 04/03/2024 LIPID PANEL LDL calc comment: SCHOOL PHOTOGRAPHER Not Available [facility] ([facility]) [address] [facility], [place], [address], 04/06/2024 07:11:08 04/02/20 24 04/03/2024 IRON AND TIBC iron bind.cap.(TI BC) 319 ug/dL 250-45 0 normal Not Available [facility] ([facility]) [address] [facility], [place], [address], 04/06/2024 07:11:09 04/02/20 24 04/03/2024 IRON AND TIBC UIBC 220 ug/dL 131-42 5 normal Not Available [facility] ([facility]) [address] [facility], [place], [address], 04/06/2024 07:11:09 04/02/20 24 04/03/2024 IRON AND TIBC iron 99 ug/dL 27-159 normal Not Available [facility] ([facility]) [address] [facility], [place], [address], 04/06/2024 07:11:09 04/02/20 24 04/03/2024 IRON AND TIBC iron saturation 31 % 15-55 normal Not Available [facility] ([facility]) [address] [facility], [place], [address], 04/06/2024 07:11:09 04/02/20 24 04/03/2024 VITAM IN B12 AND FOLAT E vitamin B12 613 pg/mL 232-12 45 normal Not Available [facility] ([facility]) [address] [facility], [place], [address], 04/06/2024 07:11:10 04/02/20 24 04/03/2024 VITAM IN B12 AND FOLAT E folate (folic acid), serum 13.7 NG/mL >3.0 normal A serum folat e elroy ntrat ion of less than 3.1 ng/mL is consi dered to repre sent clini eric defic iency . Not Available [facility] ([facility]) [address] [facility], [place], [address], 04/06/2024 07:11:10 04/02/20 24 04/03/2024 HEMOG LOBIN A1C hemoglobin A1C 5.5 % 4.8-5. 6 normal Predi abete s: 5.7 - 6.4 Diabe britney: >6.4 Glyce milvia contr ol for adult s with diabe britney: <7.0 Not Available [facility] ([facility]) [address] [facility], [place], [address], 04/06/2024 07:11:11 04/02/20 24 04/03/2024 VITAM IN D, 25-HY DROXY vitamin D, 25-hydroxy 49.1 NG/mL 30.0-1 00.0 Vitam in D defic iency has been defin ed by the Insti tute of Medic ine and an Endoc rine Socie ty pract ice guide line as a level of serum 25-OH vitam in D less than 20 ng/mL (1,2) . The Endoc rine Socie ty went on to furth er defin e vitam in D insuf ficie ncy as a level betwe en 21 and 29 ng/mL (2). 1. IOM (Inst itute of Medic ine). 2009. Dieta ry refer ence intak es for calci um and D. Nicole nicholas [place]: [facility] . 2. James wells MF, Miguel milian [place], Frederic off-F errar i TELLO, et al. Evalu ation , treat ment, and preve ntion of vitam in D defic iency : an Endoc rine Socie ty clini eric pract ice guide line. JCEM. 2010; 96(7) :1911 -30. Not Available [facility] ([facility]) [address] [facility], [place], [address], 04/06/2024 07:11:12 04/02/20 24 04/06/2024 VITAM IN B1 (THIA MINE) , BLOOD vit. B1, whole blood 194.2 nmol/ L 66.5-2 00.0 Not Available [facility] ([facility]) [address] [facility], [place], [address], 04/06/2024 07:11:13 04/02/20 24 04/03/2024 HCV ANTIB TIMBO hep C virus Ab NON REACTI VE non reacti ve HCV antib timbo alone does not diffe renti ate betwe en previ ously resol bi infec tion and activ e infec tion. Equiv ocal and React hong HCV antib timbo resul ts shoul d be follo wed up with an HCV RNA test to suppo rt the diagn osis of activ e HCV infec tion. Not Available [facility] ([facility]) [address] [facility], [place], [address], 04/06/2024 07:11:14 04/02/20 24 04/03/2024 PHOSP HORUS phosphorus 3.6 mg/dL 3.0-4. 3 normal Not Available [facility] ([facility]) [address] [facility], [place], [address], 04/06/2024 07:11:15 04/02/20 24 04/03/2024 MAGNE SIUM magnesium 2.0 mg/dL 1.6-2. 3 normal Not Available [facility] ([facility]) [address] [facility], [place], [address], 04/06/2024 07:11:16 04/02/20 24 04/03/2024 BELLO TIN ferritin 232 NG/mL 15-150 above high normal Not Available [facility] ([facility]) [address] [facility], [place], [address], 04/06/2024 07:11:17 07/01/19 23 06/30/2022 XR, hip + pelvi s, unila teral , 2 or 3 view No observ ation record ed. [id number] [facility] [address] [place], [address], 07/01/2022 11:31:49 07/01/19 23 06/30/2022 scree ran breas t shon, bilat [facility] [address] [place] [address] [phone] Pollo herrera Name: JENNIFER MILES Access ion #: [id number] Sex: F : 1965 4 Locati on: RAD Attend ing Physic hortencia: SHERITA HICKMAN Orderi ng Physic hortencia: SHERITA HICKMAN Exam Date: 023 9:40 AM Exam Name: MG CASTELLON BREAST SHON BILAT Admitt ing Diagno sis(es ): MAMMOG CHANA REPORT - FINAL EXAM: MG CASTELLON BREAST SHON BILAT HISTOR Y: SCREEN ING MAMMOG SALAZAR 56-yea r-old female with no curren t breast compla ints. The pollo t has a histor y left breast benign excisi onal biopsy in 2006. COMPAR KATHERYN: Mammog chana dated 2020 and 2017. TECHNI QUE: Bilate ral CC and MLO views of the breast s were perfor med. Digita l Mammog chana images were obtain ed. CAD (compu ter assist ed detect ion) was utiliz ed. 3D Digita l breast tomosy nthesi s was perfor med and used in the interp retati on of images . FINDIN GS: There are scatte red areas of fibrog landul ar densit y. Page 1 of 2 [facility] Pollo herrera Name: JENNIFER MILES Access ion #: [id number] Sex: F : 1965 4 Exam Date: 023 9:40 AM Exam Name: MG CASTELLON BREAST SHON BILAT Admitt ing Diagno sis(es ): No masses , asymme tries, suspic ious calcif icatio ns, or dick ectura l distor tion are seen. IMPRES JEEVAN: BIRADS 1: Assess ment comple te. Negati ve. Recomm end annual screen ing mammog chana. Accord ing to the [employer], yearly mammog della are recomm ended starti ng at age 40 and contin uing as long as the woman is in good health . Clinic al Breast Exam should be part of the period ic health exam-a bout every 3 years for women in their 20s and 30s and every year for women 40 and over. Breast self-e xam is an option for women in their 20s. Any breast change noted on the breast self-e xam she would be report ed [facility] A negati ve mammog chana report should not discou rage follow -up or biopsy of a clinic ally signif icant findin g and/or abnorm ality. Dense breast tissue may obscur e small neopla sms. This pollo herrera has been entere d into a mammog chana remind er system with a target date for her next mammog salazar. Create d and electr onical ly signed by: Kings rodrigez MD Signed Date: 11:52 AM (CT) Dictat ed by: Kings rodrigez MD DD: 11:52 AM (CT) DT: 11:52 AM (CT) Page 2 of 2 [email or web address] [facility] (Imaging) [address] [place], [address], 07/01/2022 11:31:50 07/04/19 23 06/30/2022 XR, lumba r spine No observ ation record ed. [email or web address] [facility] [address] [place], [address], 09/09/2022 09:26:35 Result Notes None recorded. Problems Name Problem SNOMED Code Status Onset Date Resolution Date Notes Provider Name and Address Organization Details Recorded Time Nonische milvia congesti ve cardiomy opathy 14274455224 4 Active Not Available [facility] 3 10:28:38 Non-neop lastic nevus 346870524 Active Not Available [facility] 3 10:28:38 Asthma 739855721 Active Not Available [facility] 3 10:28:38 Wrist joint pain 807365007 Active Not Available [facility] 3 10:28:38 Morbid obesity 634251725 Completed 201708/20/2018 Not Available [facility] 3 12:47:13 Post-moses gical malabsor ption 062793181 Active 2017 Not Available [facility] 3 10:28:38 Dysmenor miguelito 732392180 Active Not Available [facility] 3 10:28:38 Dyspnea 613713854 Active Not Available [facility] 3 10:28:38 Low back pain 698343178 Active Not Available [facility] 3 10:28:38 Pain in left lower limb 175451434 Active Not Available [facility] 3 10:28:38 Right upper quadrant pain 434449153 Active Not Available [facility] 3 10:28:38 Pain in right knee Active Not Available [facility] 3 10:28:38 Vitamin D deficien cy 46158336 Active Not Available [facility] 3 10:28:38 Depressi ve disorder 04378722 Active Not Available [facility] 3 10:28:39 Seasonal allergic rhinitis 183605697 Active Not Available [facility] 3 10:28:39 Hiatal hernia with gastroes ophageal reflux 225871535 Active 2017 Not Available [facility] 3 10:28:39 Migraine 85575052 Active Not Available [facility] 3 10:28:39 Hyperten sive disorder 66341218 Active 2017 Not Available [facility] 3 10:28:39 Menorrha mariusz 426345598 Completed Not Available [facility] 3 12:47:14 Osteoart hritis 541383306 Active Not Available [facility] 3 10:28:39 Body mass index 40+ - severely obese 279929230 Completed 201708/20/2018 Not Available [facility] 3 12:47:15 Obesity 541395229 Active Not Available [facility] 3 10:28:39 Congesti ve heart failure 99871527 Active Not Available [facility] 3 10:28:39 IgE-medi ated allergic asthma 370169149 Active Not Available [facility] 3 10:28:39 Cough 28557805 Active Not Available [facility] 3 10:28:39 Hyperlip idemia 08813156 Active Not Available [facility] 3 10:28:39 Essentia l hyperten jeevan 68635618 Active Not Available [facility] 3 10:28:39 History of bariatri c surgical procedur e 729806624 Active 2017 Not Available [facility] 3 10:28:39 Supraven tricular tachycar opal 9511216 Active 2017 Not Available [facility] 3 10:28:39 Urinary tract infectio us disease 73882490 Active Not Available [facility] 3 10:28:39 Obstruct hong sleep apnea syndrome 22552205 Active Not Available [facility] 3 10:28:39 Hypergly cemia 29110660 Active Not Available [facility] 3 10:28:39 Cardiomy opathy 17152109 Active Pacemake r in situ Not Available [facility] 3 10:28:39 Menopaus al symptom 28844811 Active 2022 Not Available [facility] 3 10:28:38 Degenera tion of lumbar interver tebral disc 39819967 Active 2022 Not Available [facility] 3 10:28:38 Serum ferritin above referenc e range 561288026 Active 2022 Not Available [facility] 3 10:28:39 Mixed anxiety and depressi ve disorder 284473274 Active 2022 Not Available [facility] 3 10:28:38 Gastroes ophageal reflux disease without esophagi tis 733006977 Active 2023 ALEE Tamayo-C [address], [address], [place], [address] , [facility] [employer] [facility] 4 10:31:52 Problem Notes None recorded. Procedures Surgical History None recorded. Imaging Results Imaging Date Name Status LastModified by Organiz ation Details LastModified Time 06/30/2022 XR, hip + pelvis, unilateral, 2 or 3 view completed [email or web address] [facility] [address] [place], [address], 07/01/2022 11:31:49 06/30/2022 screening breast shon, bilat completed [email or web address] [facility] ([facility]) [address] [place], [address], 07/01/2022 11:31:50 06/30/2022 XR, lumbar spine completed [email or web address] [facility] [address] [place], [address], 09/09/2022 09:26:35 Procedure Notes None recorded. Medical Equipment None Reported. Allergies Allergen ID Allergen Name Allergen Category Reaction Reaction Severity Criticality Documentation Date Start Date Code Code System Note Provider Name and Address Organization Details Recorded Time 55660 Zithromax medicatio n anaphylax is Not available Not available 06/04/2022 22071 4 RxNorm Not Available [facility] 3 12:50:17 06109 Wellbutri n medicatio n other Not available Not available 06/04/2022 38863 RxNorm Joselyn Garcia MD [address] [facility], [facility] [address], [place], [address], [employer] [facility] 3 12:32:46 09081 acetamino phen / hydrocodo ne medicatio n nausea Not available Not available 06/04/2022 93956 2 RxNorm Not Available [facility] 3 12:50:18 46683 Trilipix medicatio n nausea Not available Not available 06/04/2022 19664 4 RxNorm Not Available [facility] 3 12:50:18 28725 Singulair medicatio n irregular heart rate Not available Not available 06/04/2022 72124 9 RxNorm palpi tatio ns Not Available [facility] 3 12:50:18 01664 pravastat in medicatio n Not available Not available Not available 06/04/2022 97636 RxNorm Not Available [facility] 3 12:50:18 56258 Pravachol medicatio n other Not available Not available 06/04/2022 17297 3 RxNorm leg cramp s Not Available [facility] 3 12:50:18 70165 Pneumococ eric vaccine Not available other Not available Not available 06/04/2022 10704 7 RxNorm arm numbn ess Not Available [facility] 3 12:50:18 93802 Product containin g penicilli n (product) medicatio n anaphylax is rash Not available Not available Not available 06/04/2022 24461 8001 SNOMED Not Available [facility] 3 12:50:18 00932 Niaspan medicatio n rash Not available Not available 06/04/2022 33391 6 RxNorm Not Available [facility] 3 12:50:19 06626 Nasonex medicatio n Not available Not available Not available 06/04/2022 34218 6 RxNorm Not Available [facility] 3 12:50:19 60494 Lipitor medicatio n nausea other Not available Not available Not available 06/04/2022 91373 5 RxNorm jitte ry Not Available [facility] 3 12:50:19 82890 Lexapro medicatio n Not available Not available Not available 06/04/2022 04996 1 RxNorm nervo us Not Available [facility] 3 12:50:19 31397 Levaquin medicatio n rash Not available Not available 06/04/2022 36526 2 RxNorm Not Available [facility] 3 12:50:19 76536 Cymbalta medicatio n Not available Not available Not available 06/04/2022 92339 4 RxNorm Not Available [facility] 3 12:50:19 45004 codeine medicatio n Not available Not available Not available 06/04/2022 2670 RxNorm Not Available [facility] 3 12:50:19 43325 azithromy earl medicatio n Not available Not available Not available 06/04/2022 41598 RxNorm Not Available [facility] 3 12:50:19 86932 Asmanex medicatio n respirato ry distress severe Not available 06/04/2022 09287 2 RxNorm Not Available [facility] 3 12:50:19 95146 amoxicill in medicatio n Not available Not available Not available 06/04/2022 723 RxNorm Not Available [facility] 3 12:50:19 59630 fluticaso ne / salmetero l medicatio n irregular heart rate Not available Not available 06/04/2022 27588 5 RxNorm palpi tatio ns Not Available [facility] 3 12:50:20 75351 adhesive environme nt,medica tion Not available Not available Not available 06/04/2022 69070 UNK Not Available [facility] 3 12:50:20 Medications Name Sig Start Date Stop Date Status Note LastModified by Organization Details LastModified Time buspirone 5 mg tablet 04/06 completed Not Available Not Available Not Available metformin 500 mg tablet TAKE 1 TABLET BY MOUTH TWICE A DAY 08/18 completed Not Available Not Available Not Available Qvar 80 mcg/actua tion Metered Aerosol oral inhaler Inhale 2 puffs twice a day by inhalati on route. active Not Available Not Available No t Available venlafaxi ne ER 37.5 mg capsule,e xtended release 24 hr Take 1 capsule every day by oral route for 90 days. 07/21 completed Not Available Not Available Not Available carvedilo l 6.25 mg tablet Take 1 tablet twice a day by oral route for 30 days. 11/07 completed Not Available Not Available Not Available prednison e 10 mg tablet PLEASE SEE ATTACHED FOR DETAILED DIRECTIO NS 07/25 completed Not Available Not Available Not Available venlafaxi ne ER 75 mg capsule,e xtended release 24 hr TAKE 1 CAPSULE BY MOUTH EVERY DAY 03/16 completed Not Available Not Available Not Available doxycycli ne hyclate 100 mg capsule Take 1 capsule twice a day by oral route for 7 days. 03/12 completed Not Available Not Available Not Available carvedilo l 12.5 mg tablet TAKE 1 TABLET BY MOUTH TWICE A DAY 09/14 completed Not Available Not Available Not Available clindamyc in HCl 300 mg capsule active Not Available Not Available Not Available albuterol sulfate 2.5 mg/3 mL (0.083 %) solution for nebulizat ion 11/07 completed Not Available Not Available Not Available pravastat in 40 mg tablet 11/07 completed Not Available Not Available Not Available prednison e 20 mg tablet TAKE 2 TABLETS BY MOUTH EVERY DAY FOR 5 DAYS 03/12 completed Not Available Not Available Not Available clindamyc in HCl 150 mg capsule TAKE 4 CAPSULES BY MOUTH 1 HOUR PRIOR TO DENTAL APPOINTM ENT 03/16 completed Not Available Not Available Not Available venlafaxi ne ER 150 mg capsule,e xtended release 24 hr 1 po qday 03/16 completed Not Available Not Available Not Available sumatript an 50 mg tablet Take 1 tablet every day by oral route as needed. active Not Available Not Available No t Available Tylenol Arthritis Pain 650 mg tablet,ex tended release Take 2 tablets twice a day by oral route as directed for 30 days. 08/18 completed Not Available Not Available Not Available ciproflox acin 250 mg tablet 1 TABLET TWICE A DAY 03/16 completed Not Available Not Available Not Available Aspir-Low 81 mg tablet,de layed release Take 1 tablet every day by oral route. 08/18 completed Not Available Not Available Not Available ciproflox acin 500 mg tablet 06/10 completed Not Available Not Available Not Available sulfameth oxazole 800 mg-trimet hoprim 160 mg tablet Take 1 tablet every 12 hours by oral route for 7 days. active Not Available Not Available No t Available tramadol 50 mg tablet 1 po q6 hours prn active Not Available Not Available No t Available carvedilo l 3.125 mg tablet TAKE 1 TABLET BY MOUTH TWICE A DAY 09/14 completed Not Available Not Available Not Available Kenalog 40 mg/mL suspensio n for injection Take 1 mL by injectio n route. active Not Available Not Available No t Available oxycodone -acetamin ophen 5 mg-325 mg tablet TAKE 1 TABLET BY MOUTH THREE TIMES A DAY NEEDED FOR PAIN 03/16 completed Not Available Not Available Not Available alprazola m 0.25 mg tablet Take 1 tablet twice a day by oral route as needed for 30 days. 09/14 completed Not Available Not Available Not Available famotidin e 20 mg tablet TAKE 1 TABLET BY MOUTH EVERY 12 HOURS FOR 10 DAYS 09/14 completed Not Available Not Available Not Available dicyclomi ne 20 mg tablet active Not Available Not Available Not Available [employer] Ultra Test strips tests tid active Not Available Not Available No t Available cephalexi n 500 mg capsule TAKE 1 CAPSULE BY MOUTH EVERY 8 HOURS FOR 10 DAYS 08/18 completed Not Available Not Available Not Available misoprost ol 200 mcg tablet Take 2 tablets by oral route at bedtime for 1 day. active Not Available Not Available No t Available sertralin e 25 mg tablet 10/21 completed Not Available Not Available Not Available omeprazol e 20 mg capsule,d elayed release 1 po qday 2023 active Not Available Not Available Not Avai lable cyanocoba sanjuana (vit B-12) 1,000 mcg sublingua l tablet 1 SL qday 04/23 completed Not Available Not Available Not Available furosemid e 20 mg tablet Take 1 tablet every day by oral route for 30 days. 11/07 completed Not Available Not Available Not Available Nasonex 50 mcg/actua tion Eagar 04/06 completed Not Available Not Available Not Available polyethyl ozzie glycol 3350 17 gram/dose oral powder active Not Available Not Available Not Available methylpre dnisolone 4 mg tablets in a dose pack as directed active Not Available Not Available No t Available Vitamin D2 1,250 mcg (50,000 unit) capsule Take 1 capsule every week by oral route for 30 days. active Not Available Not Available No t Available fluticaso ne propionat e 50 mcg/actua tion nasal spray,shannon pension 2 sprays each nostril once daily active Not Available Not Available No t Available doxycycli ne hyclate 100 mg tablet TAKE 1 TABLET BY MOUTH TWICE A DAY FOR 7 DAYS 03/12 completed Not Available Not Available Not Available dicyclomi ne 10 mg capsule take one tablet ac active Not Available Not Available No t Available naproxen 500 mg tablet 08/18 completed Not Available Not Available Not Available Tylenol Extra Strength 500 mg tablet Take 1 tablet 3 times a day by oral route as needed. 04/23 completed Not Available Not Available Not Available Ventolin HFA 90 mcg/actua tion aerosol inhaler INHALE 2 PUFFS BY MOUTH 4 TIMES DAILY 04/23 completed Not Available Not Available Not Available Benadryl 25 mg capsule Take 1 capsule every 4 hours by oral route as needed for 30 days. 2012 active Not Available Not Available Not Avai lable enoxapari n 40 mg/0.4 mL subcutane ous syringe active Not Available Not Available Not Available escitalop salazar 10 mg tablet 10/21 completed Not Available Not Available Not Available cyclobenz aprine 5 mg tablet 03/16 completed Not Available Not Available Not Available rosuvasta tin 5 mg tablet TAKE 1 TABLET BY MOUTH EVERY DAY AT BEDTIME 08/18 completed Not Available Not Available Not Available rosuvasta tin 10 mg tablet Take 1 tablet every day by oral route. active 1/2 tab po qday Not Available Not Available Not Available bupropion HCl XL 300 mg 24 hr tablet, extended release Take 1 tablet every day by oral route. active Not Available Not Available No t Available bupropion HCl XL 150 mg 24 hr tablet, extended release 1 po qday 03/16 completed Not Available Not Available Not Available topiramat e 50 mg tablet Take 1 tablet twice a day by oral route for 30 days. 08/18 completed Not Available Not Available Not Available Spiriva with [employer] r 18 mcg and inhalatio n capsules Inhale 1 capsule every day by inhalati on route for 30 days. active Not Available Not Available No t Available Vitamin C 1 a day 11/07 completed Not Available Not Available Not Available vitamin E 09/14 completed Not Available Not Available Not Available Tylenol 2013 active Not Available Not Available Not Avai lable Xopenex 1 puff every 4 hours 2013 active Not Available Not Available Not Avai lable multivita min once daily 04/23 completed Not Available Not Available Not Available Xopenex HFA 45 mcg/actua tion aerosol inhaler INHALE TWO PUFFS BY MOUTH EVERY 6 HOURS 06/14 completed Not Available Not Available Not Available aripipraz ole 2 mg tablet 1 po qday 2023 active Not Available Not Available Not Avai lable Xopenex HFA every 4 hours as needed 2012 active bydebra ologist Not Available Not Available Not Available omeprazol e 20 mg tablet,de layed release Take 1 tablet every day by oral route. 04/23 completed Not Available Not Available Not Available multivit- mins-calc ium 200 mg-biotin 450 mcg-vit D3 400 unit-FA tablet 2013 active Not Available Not Available Not Avai lable Flovent Diskus 250 mcg/actua tion powder for inhalatio n INHALE ONE PUFF BY MOUTH TWICE A DAY DIRECTED FOR 30 DAYS 06/10 completed Not Available Not Available Not Available Dulera 100 mcg-5 mcg/actua tion HFA aerosol inhaler Inhale 2 puffs twice a day by inhalati on route. 08/18 completed 1 puff daily Not Available Not Available Not Available Vitamin D3 50 mcg (2,000 unit) capsule Take 1 capsule every day by oral route. 04/23 completed Not Available Not Available Not Available Viibryd 10 mg (7)-20 mg (7)-40 mg(16) tablets in a dose pack 2012 active Not Available Not Available Not Avai lable One-A-Day Women's 50 Plus 1 daily 04/23 completed Not Available Not Available Not Available Asmanex HFA 200 mcg/actua tion aerosol inhaler Inhale 1 puff every 6 hours by inhalati on route for 90 days. active Not Available Not Available No t Available Vitamin B12 1000 mcg daily 04/23 completed Not Available Not Available Not Available OneTouch Ultra Blue Test Strip 11/12 completed Not Available Not Available Not Available Mounjaro 2.5 mg/0.5 mL subcutane ous pen injector Inject 0.5 mL every week by subcutan eous route. 06/15 completed [employer]ur[employer] will not cover Not Available Not Available Not Available Zepbound 2.5 mg/0.5 mL subcutane ous pen injector INJECT 0.5 ML SUBCUTAN EOUSLY EVERY WEEK active Not Available Not Available No t Available Vitals Date Recorded Oxygen saturation Oxygen saturation in Arterial blood by Pulse oximetry Heart rate Body temperature Body weight Systolic blood pressure Diastolic blood pressure Provider Name and Address Organization Details Last Updated DateTime 2 99 % 99 % 87 /min 97.2 [degF] 54102.4 4 g 104 mm[Hg] 72 mm[Hg] Not Available [facility] 3 12:46:18 Date Recorded Body weight Body mass index (BMI) Body height Body temperature Heart rate Oxygen saturation Oxygen saturation in Arterial blood by Pulse oximetry Systolic blood pressure Diastolic blood pressure Provider Name and Address Organization Details Last Updated DateTime 3 54232.8 5 g 32.4 kg/m2 157.48 cm 97.8 [degF] 81 /min 99 % 99 % 124 mm[Hg] 80 mm[Hg] Zohaib Moffett CMA [facility] [employer] 3 12:01:13 Date Recorded Body height Body mass index (BMI) Body weight Body temperature Heart rate Oxygen saturation Oxygen saturation in Arterial blood by Pulse oximetry Systolic blood pressure Diastolic blood pressure Provider Name and Address Organization Details Last Updated DateTime 3 157.48 cm 33.1 kg/m2 56213.2 2 g 97.6 [degF] 92 /min 98 % 98 % 140 mm[Hg] 82 mm[Hg] Anusha Harris RN [facility] [employer] 3 12:06:44 Date Recorded Body height Body mass index (BMI) Body weight Body temperature Oxygen saturation Oxygen saturation in Arterial blood by Pulse oximetry Heart rate Provider Name and Address Organization Details Last Updated DateTime 3 157.48 cm 34.4 kg/m2 41854.0 8 g 99 [degF] 99 % 99 % 84 /min Anusha Harris RN [facility] [employer] [facility] 3 11:46:55 Date Recorded Body weight Body temperature Heart rate Oxygen saturation Oxygen saturation in Arterial blood by Pulse oximetry Systolic blood pressure Diastolic blood pressure Provider Name and Address Organization Details Last Updated DateTime 4 48092.9 9 g 97.1 [degF] 90 /min 98 % 98 % 130 mm[Hg] 82 mm[Hg] Anusha Harris RN [facility] 4 09:23:35 Date Recorded Body mass index (BMI) Body height Provider Name and Address Organization Details Last Updated DateTime 03/16/2024 38.6 kg/m2 157.48 cm LISA Tamayo [address] [facility], [facility] [address], [place], [address], [facility] 03/16/2024 09:29:44 Social History Question Answer Notes LastModified by Organizat ion Details LastModified Time What Is Your Occupation? [id number] Information not available 06/04/2022 Sex: Unknown Functional Status None recorded. Mental Status None recorded. Family History Nothing Reported Notes:No breast, colon, ovar y cancer Medical History No medical history recorded. Gynecological HistoryNo gynecological history recorded. Obstetrics History GPAL:G 0 P 0 0 0 0 Immunizations Vaccine Type Date Status Note Provider Nam e and Address Organization Details Recorded Time COVID-19, mRNA, LNP-S, PF, heath-sucrose, 10 mcg/0.3 mL 3 completed DELISA Prater, [facility] 03/19/2023 10:42:10 Influenza, split virus, quadrivalent, preservative 6 completed Not Available [facility] 06/04/2022 12:50:13 Influenza, split virus, quadrivalent, preservative 3 completed Not Available [facility] 06/04/2022 12:50:13 Influenza, high-dose, trivalent, PF 4 completed Not Available [facility] 06/04/2022 12:50:13 Influenza, split virus, quadrivalent, PF 9 completed Not Available [facility] 06/04/2022 12:50:14 Influenza, split virus, quadrivalent, PF 8 completed Not Available [facility] 06/04/2022 12:50:14 Influenza, split virus, quadrivalent, PF 1 completed Not Available [facility] 06/04/2022 12:50:14 Influenza, split virus, quadrivalent, PF 0 completed Not Available [facility] 06/04/2022 12:50:14 Influenza, split virus, quadrivalent, PF 5 completed Not Available [facility] 06/04/2022 12:50:14 Past Encounters Encounter ID Performer Location Encounter Start Date Encounter Closed Date Diagnosis/Indication Diagnosis SNOMED-CT Code Diagnosis ICD10 Code Diagnosis Note [id number] [facility] Primary [facility] [address] [place] [address] 12/13/2020 00:00:00 12/27/2020 14:17:[id number] [facility] [address] 03/27/2022 00:00:00 04/04/2022 10:58:16 [id number] Joselyn Garcia MD [facility] Primary Care [address] [facility] [address] 07/21/2022 11:54:12 07/21/2022 12:23:47 Menopausal symptom 78642685 N95.1 improving but not yet to baselinein crease venlafaxin e ER 150 mg dailyf/u in 4-6 weeks or sooner if needed Degenerati on of lumbar intervertebral disc 95555963 M51.36 reviewed xraysok to continue tylenolPT referral givenf/u in 4-6 weeks [id number] Joselyn Garcia MD [facility] Primary Care [address] [facility] [address] 12/11/2022 11:59:11 12/11/2022 12:34:02 Degeneration of lumbar intervertebral disc 46126987 M51.36 continue stretching uses tramadol sparingly Mixed anxi ety and depressive disorder 894894767 F41.8 not in good controlpsy chiatry referral givend/c venlafaxin eTrial of bupropion xl 150 mg daily with food in AM-may help both mood and appetitef/ u by portal in 4 weeks and in office in 3 months or sooner if needed Serum ferr itin above reference range 514841868 R77.8 again noted on labs, improved from previous levels but not to baseline?d ue to medication will refer to hematology , pt will make appt after first of the year [id number] Joselyn Garcia MD [facility] Primary Care [facility] [address] [facility] [address] [place] [address] 03/12/2023 11:43:24 03/12/2023 12:07:54 Mixed anxiety and depressive disorder 387165750 F41.8 not in good controlpsy chiatry referral givend/c venlafaxin eTrial of bupropion xl 150 mg daily with food in AM-may help both mood and appetitef/ u by portal in 4 weeks and in office in 3 months or sooner if needed update 03/12/23: improving but still having increased cravings and weight gainincrea se bupropion xl 300 mg dailyf/u in 3 months or sooner if needed [id number] LISA Tamayo [facility] Primary Care [facility] [address] [facility] [address] [facility] [address] 03/16/2024 09:18:35 03/16/2024 10:11:43 Adult health examination [id number] Z00.00 Discussed medication compliance and routine follow up.Discuss ed healthy diet and routine exercise.Yannick griderwed vaccine records and made recommenda tions as needed.Enc ouraged annual eye and dental exams, as well as twice yearly dental cleanings. Will check screening labs as listed below. Degenerati on of lumbar intervertebral disc [id number] M51.369 Doing well at this time. Take Tramadol very sparingly. Essential hypertension [id number] I10 130/82.Dis cussed DASH diet and routine exercise. Hyperlipidemia 78226237 E78.5 Will check labs as listed below. Mixed anxi ety and depressive disorder [id number] F41.8 Doing well on current medication s, will continue to refill.Pat ient will follow up as needed.Den ies SI/HI. Obstructiv e sleep apnea syndrome [id number] G47.33 Will refer to sleep medicine for sleep study as patient requested. Vitamin D deficiency 347 68854 E55.9 Will check labs as listed below. Body mass index 30+ - obesity [id number] Z68.38 BMI: 38.6Discus sed healthy diet and routine exercise. Hepatitis C screening [id number] Z11.59 Post-surgi eric malabsorption 467081194 K91.2 Will check labs as listed below. Gastroesop hageal reflux disease without esophagitis 743872002 K21.9 Doing well on current medication s, will refill as listed below. Long-term drug therapy [id number] Z79.891 Discussed CSA, in detail, with patient. Patient verbalized understand ing and is agreeable to routine follow up appointmen ts and drug screens. Hyperglycemia 69358025 R 73.9 Will check labs as listed below. History of bariatric surgical procedure 952660779 Z98.84 Will check labs as listed below. Health Concerns Section Related Observation LastModified by Organization Detai ls LastModified Time None Recorded Concern Status LastModified by Organization Details LastModified Time None Recorded Advance Directives Directive None Recorded Payers Encounter Date Sequence Insurance Name Policy Number Policy Lopez Covered Member ID Lopez Member ID Guarantor Name 07/21/2022 1 [employer] - CHOICE (POS II) [id number] Jennifer Daley [id number] Jennifer R Daley 12/11/2022 1 [employer] - CHO[employer] (POS II) [id number] Jennifer Daley [id number] Jennifer R Daley 03/12/2023 1 [employer] - CHOICE (POS II) [id number] Jennifer Daley [id number] Jennifer R Daley 03/16/2024 1 [employer] - CHOICE (POS II) [id number] Jennifer Daley [id number] Jennifer R Daley Notes Date Note Type Note Provider Name and Address Organization Details Recorded Time 07/21/2022 text/html here to f/u on medications, she is currently on venlafaxine ER 75 mg daily. No med s/e, she is noticing her mood is getting better but she still have some depressive issues. Joselyn Garcia MD [address] [place] [address], [facility] [address], [place], [address], [facility] [employer] 08/01/2022 16:09:27 12/11/2022 text/html has gained weigh t, twitches, coughing, increased sweating. increased fatigue, irritability/angry moods. concerned about weight gain. hip pain improved, doing stretching which helps along with tramadol which she takes sparingly. Joselyn Garcia MD [address] [facility], [facility] [address], [place], [address], [facility] 12/11/2022 14:39:16 03/12/2023 text/html Telephone visit: mood is better but gaining weight and appetite/cravings are still up. No si/hi. Joselyn Garcia MD [address] [facility], [facility] [address], [place], [address], [facility] [employer] 04/02/2023 08:51:08 03/16/2024 text/html Patient is a 58 year old female that presents to the office for annual wellness.Patient reports she is doing well on current medications. Denies SI/HI. Patient requesting referral to sleep medicine for sleep study, sleep has not been consistent and she thinks it is related to her CPAP needing to be replaced. Patient reports general body twitches, primarily in her fingers and toes for about one year. Patient reports mild balance disturbance and lightheadedness with position changes. Patient denies headaches and vision changes. Patient denies falls. Family history of Parkinson's, wants to establish care with Neurology. [id number] Dr. Villedaogram-ord eredColonoscopy-UTD, due [id number]-RNNAvial-CULK ole-fslwzKziwcrqq-sov rePneumonia-declines, allergy ALEE Tamayo-Blanca [address] [facility], [address], [place], [address], [facility] 03/16/2024 10:32:32 OBGyn Episode No OBEpisode recorded.
--- OUTSIDE RECORDS SUMMARY | 2024-06-16 15:56 | XMS_ITS | Clinical Summary ---
Author Organization [facility] Shivaisha rose Alfredo Address [address] [place] [address] Care Team Providers Care Regional Sales Consultant Name Role Phone Unavailable Primary Care Provider Unavailabl e Allergies Active Allergy Reactions Criticality Noted Date Comments Azithromycin Anaphylaxis High 06/16/2024 Penicillins Anaphylaxis,Rash High 12/21/2021 Medications buPROPion HCL (WELLBUTRIN XL) 150 mg Extended Release 24 hour tablet Take 150 mg by mouth daily in the morning. Active ARIPiprazole (ABILIFY) 2 mg tablet Take 2 mg by mouth daily. Active omeprazole (PriLOSEC) 20 mg Capsule, Delayed Release(E.C.) Take 20 mg by mouth daily. Active MULTIVITAMINS W/C ORAL daily. Active CHOLECALCIFEROL, VITAMIN D3, ORAL Take by mouth daily. Active CYANOCOBALAMIN, VITAMIN B-12, ORAL Take by mouth daily. Active calcium carbonate/vitami n D3 (CALTRATE 600 + D ORAL) Take 650 mcg by mouth 2 times daily. Active Active Problems No known active problems Encounters Date Type Department Care Team Description 06/16/2024 1:30 PM CDT Office Visit [facility] Oncology and Hematology - [place] [address] [place] [id number] Braydon Soto MD Iron overload (Primary Dx) from Last 3 Months Family History Medical History Relation Name Comments No Known Problems Child 1 No Known Problems Child 2 Heart Disease Father Lung Cancer Father Throat Cancer Father Diabetes Mother Heart Disease Mother Diabetes Sister 1 Heart Disease Sister 1 Diabetes Sister 2 Heart Disease Sister 2 Relation Name Status Comments Child 1 Alive Child 2 Alive Father Mother Sister 1 Sister 2 Alive Social History Tobacco Use Types Packs/Day Years Used Date Smoking Tobacco: Never Smokeless Tobacco: Never Alcohol Use Standard Drinks/Week Comments Yes 0 (1 standard drink = 0.6 oz pur e alcohol) Occasionally Comments Unknown Sex and Gender Information Value Date Recorded Sex Assigned at Not on file Legal 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 Gender Identity Not on file Sexual Orientation [...] Mass Index 38.78 06/16/2024 1:25 PM CDT Plan of Treatment Upcoming Encounters Date Type Department Care Team (Late st Contact Info) Description 06/30/2024 4:00 PM CDT Telephone Check Up [facility] Oncology and Hematology - [place] [address] [facility] [address] [place] [address] Braydon Soto MD [address] [facility] [address] [place] [address] Health Maintenance Due Date Last Done Comments DTAP/TDAP/TD VACCINES (1 - Tdap) 1984 HEPATITIS B VACCINES (1 of 3 - + 3-dose series) 12/05 CERVICAL CANCER SCREENING 12/24/1995 BREAST CANCER SCREENING 2005 COLORECTAL SCREENING 2010 Colorectal Cancer Screening 2010 FIT-DNA Q 3 years 2010 FIT/FOBT Q 1 year 2010 Flex Sig/CT Colonography Q 5 years 2010 ZOSTER VACCINE (1 of 2) 12/24/2015 INFLUENZA VACCINE (#1) 2023
--- OUTSIDE RECORDS SUMMARY | 2024-06-16 15:56 | XMS_ITS | CONTINUITY OF CARE DOCUMENT ---
Author Name cbdestiny cbdestiny Address Unknown Organization [facility] Address [address] [place] [address] Phone [phone] Care Team Providers Care Driver Supervisor Name Role Phone Ramone GRAYSON, Fox Unavailable JOSELYN SOW MD Unavailable JOSELYN SOW MD Unavailable [phone] PROBLEMS Condition Status Date Provider Notes Cardiomyopathy active Stephany Dayton Hyperlipidemia active Marleny Lively ORTHOSTATIC HYPOTENSION active Alejandrina elizondo MA OBESITY active Alejandrina Rojas MA ARRHYTHMIA active Alejandrina Rojas MA CAD- MILD RCA 20% 04/12. NL CAROTID 07/11 active ? Fox Pack MD SLEEP [id number] CPAP active ? Fox huffman MD LEG PAIN active Fox Pack MD Sick sinus syndrome active Fox Pack MD CAD-12/16 NUC EF 67 completed - Fox Marcelo D S/P BI-V ICD-MEDTRONIC//Gen change BiV ICD Biotronik 03/26/23 (NOT MRI SAFE/ MED. Leads) active Sharonda Ash (Stat us post) AICD - MEDTRONICS active Fox Pack MD INSJ ELTRD CAR KRISTINA SYS TM INSJ CVDFB/PM PLS GEN active - Fox Pack MD CARDIOMYOPATHY-NICMP- EF 25-30% 05/14 active ? Fox Pack MD ENCOUNTERS Date Type Provider Location Encounter Diagnosis - In-person encounter Office Visit Fox Pack MD [facility] Office - In-person encounter Office Visit Fox Pack MD [facility] Sick sinus syndrome - In-person encounter Office Visit Fox Pack MD [facility] - In-person encounter Office Visit Fox Pack MD [facility] Office - In-person encounter Office Visit Fox Pack MD [facility] - In-person encounter Office Visit Fox Pack MD [facility] - In-person encounter Office Visit Fox Pack MD [facility] - In-person encounter Office Visit Fox Pack MD [facility] - In-person encounter Office Visit Fox Pack MD [facility] - In-person encounter Office Visit Fox Pack MD [facility] -12/16 NUC EF 67 - In-person encounter Office Visit Fox Pack MD [facility] - In-person encounter Office Visit Fox Pack MD [facility] - In-person encounter Office Visit Fox Pack MD [facility] - In-person encounter Office Visit Fox Pack MD [facility] - In-person encounter Office Visit Fox Pack MD [facility] - In-person encounter Office Visit Fox Pack MD [facility] - In-person encounter Office Visit Fox Pack MD [facility] LEG PAIN - In-person encounter Office Visit Fox Pack MD [facility] - In-person encounter Office Visit Fox Pack MD [facility] - In-person encounter Office Visit Fox Pack MD [facility] CARDIOMYOPATHY-MELBA MP- EF 25-30% 05/14INSJ ELTRD CAR KRISTINA SYS TM INSJ CVDFB/PM PLS GENCAD- MILD RCA 20% 04/12. NL CAROTID 07/11AICD - MEDTRONICSS/P BI-V ICD-MEDTRONIC//Gen change BiV ICD Biotronik 03/26/23 (NOT MRI SAFE/ MED. Leads)SLEEP [id number] CPAP VITAL SIGNS Date Observation Value Provider Body Mass Index (Ratio) 35.48 kg/m2 Adan Pack MD blood pressure, cuff size regular Ke thao Arcos blood pressure, diastolic 70 mm[Hg] Ke rrannette Arcos blood pressure, systolic 126 mm[Hg] Viola Arcos oxygen saturation, oximetry 98 % Marisa Arcos respiratory rate E&M 12 /min [facility] 93 /min Marisa Kraft [facility] weight E&M 194 [lb_av] Marisa Kraft [facility] height E&M 62 [in_i] Marisa Kraft [facility] Body Mass Index (Ratio) 32.74 kg/m2 Adan Pack MD blood pressure, diastolic 88 mm[Hg] Carol Rodriguez blood pressure, systolic 111 mm[Hg] Vidal Rodriguez oxygen saturation, oximetry 98 % Jessica Rodriguez pulse rate 90 /min Jessica farias respiratory rate E&M 16 /min Ila Rodriguez blood pressure, cuff size large Carol Rodriguez weight E&M 179 [lb_av] Jessica Quiroga d height E&M 62 [in_i] Jessica Quiroga dinora Body Mass Index (Ratio) 31.82 kg/m2 Adan Pack MD blood pressure, diastolic 97 mm[Hg] Ca therine [place] blood pressure, systolic 119 mm[Hg] Cat herine [place] oxygen saturation, oximetry 98 % Kim [place] respiratory rate E&M 14 /min Catheri ne [place] pulse rate 86 /min Kim Les weight E&M 174 [lb_av] Kim [place] blood pressure, cuff size regular Ca therine [place] height E&M 62 [in_i] Kim [place] Body Mass Index (Ratio) 30.54 kg/m2 Adan Pack MD oxygen saturation, oximetry 97 % Andriy Andrés blood pressure, diastolic 71 mm[Hg] alex Bowen blood pressure, systolic 116 mm[Hg] [facility] dashawn Andrés pulse rate 89 /min Andriy Melvin marks respiratory rate E&M 18 /min Jcarlos nhung Bowen weight E&M 167 [lb_av] Shernathanitha Craw marks height E&M 62 [in_i] Sherkeitha Craw marks Body Mass Index (Ratio) 27.98 kg/m2 Adan Pack MD blood pressure, cuff size regular Cy lesvia Mohan blood pressure, diastolic 70 mm[Hg] Cy lesvia Mohan blood pressure, systolic 118 mm[Hg] Courtney luigi Mohan oxygen saturation, oximetry 100 % Cindy Mohan respiratory rate E&M 16 /min Cindy Mohan pulse rate 96 /min Cindy Mckenna l weight E&M 153 [lb_av] Cindy Howardbel l height E&M 62 [in_i] Cindy Howardbel l Body Mass Index (Ratio) 38.59 kg/m2 Adan Pack MD blood pressure, diastolic 80 mm[Hg] Ki lleen Platt blood pressure, systolic 112 mm[Hg] Kil raffi Platt oxygen saturation, oximetry 98 % Baudette Platt respiratory rate E&M 16 /min Miles Platt pulse rate 90 /min Miles Platt weight E&M 211 [lb_av] Miles Platt height E&M 62 [in_i] Miles Platt Body Mass Index (Ratio) 45.90 kg/m2 Adan Pack MD blood pressure, diastolic 80 mm[Hg] Da ian Von blood pressure, systolic 122 mm[Hg] Dac ia Von oxygen saturation, oximetry 97 % Macey Von respiratory rate E&M 18 /min Macey V oss pulse rate 87 /min Macey Von weight E&M 251 [lb_av] Macey Von height E&M 62 [in_i] Macey Von Body Mass Index (Ratio) 45.72 kg/m2 Adan Pack MD blood pressure, resting No Kill een Platt blood pressure, diastolic 90 mm[Hg] Ki lleen Platt blood pressure, systolic 142 mm[Hg] Kil raffi Platt oxygen saturation, oximetry 98 % Miles Platt respiratory rate E&M 16 /min Miles Platt pulse rate 90 /min Baudette Platt weight E&M 250 [lb_av] Baudette Platt height E&M 62 [in_i] Miles Platt Body Mass Index (Ratio) 46.64 kg/m2 Adan Pack MD weight E&M 255 [lb_av] Fox Farias blood pressure, diastolic 64 mm[Hg] Dariusz Huff Cale blood pressure, systolic 120 mm[Hg] Fiorella Cope Cale pulse rate 81 /min Papi estradaon oxygen saturation, oximetry 98 % Papi Madsen respiratory rate E&M 16 /min Chu hammonds Madsen blood pressure, diastolic 61 mm[Hg] Me feliciano Malloy blood pressure, systolic 101 mm[Hg] Trinity costello Malloy pulse rate 86 /min Joselyn Malloy oxygen saturation, oximetry 98 % Joselyn Malloy respiratory rate E&M 16 /min Joselyn Malloy Body Mass Index (Ratio) 47.73 kg/m2 Tatyana hall Malloy weight E&M 261 [lb_av] Joselyn Malloy Body Mass Index (Ratio) 48.09 kg/m2 Anea heath Ramses blood pressure, diastolic 84 mm[Hg] An eatris Ramses blood pressure, systolic 138 mm[Hg] Ane atris Brown pulse rate 85 /min Aneatris Brown oxygen saturation, oximetry 95 % Aneatris Brown respiratory rate E&M 16 /min Aneatri s Brown weight E&M 262 [lb_av] Ewa Pearce blood pressure, diastolic 68 mm[Hg] Na zelalem Argueta blood pressure, systolic 124 mm[Hg] Trish eric Argueta pulse rate 95 /min Tessa Argueta oxygen saturation, oximetry 97 % Tessa Argueta respiratory rate E&M 17 /min Tessa Argueta Body Mass Index (Ratio) 48.28 kg/m2 Barbaar Argueta weight E&M 263 [lb_av] Tessa Argueta blood pressure, diastolic 96 mm[Hg] Hank Sifuentes RN blood pressure, systolic 157 mm[Hg] Markos Sifuentes RN pulse rate 95 /min Markos Sifuentes RN oxygen saturation, oximetry 98 % Markos Sifuentes RN respiratory rate E&M 18 /min Markos najera RN Body Mass Index (Ratio) 47.18 kg/m2 Markos Sifuentes RN weight E&M 257 [lb_av] Markos Sifuentes RN height E&M 62 [in_i] Markos Sifuentes RN blood pressure, diastolic 77 mm[Hg] Hank Sifuentes RN blood pressure, systolic 124 mm[Hg] Markos Sifuentes RN pulse rate 95 /min Markos Sifuentes RN oxygen saturation, oximetry 99 % Markos Sifuentes RN respiratory rate E&M 16 /min Markos husains RN weight E&M 248 [lb_av] Markos Sifuentes RN blood pressure, diastolic 80 mm[Hg] Hank Sifuentes RN blood pressure, systolic 121 mm[Hg] Markos Sifuentes RN pulse rate 102 /min Markos Sifuentes RN oxygen saturation, oximetry 98 % Markos Sifuentes RN respiratory rate E&M 18 /min Markos Espino rks RN weight E&M 242 [lb_av] Markos Sifuentes RN blood pressure, systolic, right leg 97 mm [Hg] Alexia Meraz blood pressure, diastolic, left arm 32 mm [Hg] Alexia Meraz blood pressure, systolic, left arm 1 mm[H g] Alexia Meraz blood pressure, diastolic, right arm 99 m m[Hg] Alexia Meraz blood pressure, systolic, right arm 140 m m[Hg] Alexia Meraz blood pressure, diastolic 99 mm[Hg] Roth Meraz blood pressure, systolic 140 mm[Hg] Moose palmer Meraz pulse rate 63 /min Alexia Meraz oxygen saturation, oximetry 99 % Alexia Meraz respiratory rate E&M 18 /min Alexia Meraz weight E&M 240 [lb_av] Alexia Merza blood pressure, diastolic 83 mm[Hg] Hank Sifuentes RN blood pressure, systolic 126 mm[Hg] Markos Sifuentes RN pulse rate 89 /min Markos Sifuentes RN oxygen saturation, oximetry 98 % Markos Sifuentes RN respiratory rate E&M 18 /min Markos najera RN weight E&M 234 [lb_av] Markos Sifuentes RN blood pressure, diastolic 88 mm[Hg] Hank Sifuentes RN blood pressure, systolic 126 mm[Hg] Markos Sifuentes RN pulse rate 95 /min Markos Sifuentes RN oxygen saturation, oximetry 99 % Markos Sifuentes RN respiratory rate E&M 16 /min Markos najera RN weight E&M 245 [lb_av] Markos Sifuentes RN blood pressure, diastolic 84 mm[Hg] Da liliya Springer blood pressure, systolic 129 mm[Hg] Lion Springer pulse rate 88 /min Rebecca Springer oxygen saturation, oximetry 98 % Rebecca Springer respiratory rate E&M 16 /min Dakota Springer weight E&M 243 [lb_av] Rebecca Springer blood pressure, diastolic 81 mm[Hg] Ca ghislaine Sousa blood pressure, systolic 134 mm[Hg] Sahil Sousa pulse rate 101 /min Cecile Sousa oxygen saturation, oximetry 98 % Cecile Sousa respiratory rate E&M 16 /min Cecile Santacruz eanselwyn weight E&M 239.5 [lb_av] Cecile boone ALLERGIES Allergy Name Onset Date Reaction Criticality Status TRILIPIX High Criticality active LOVASTATIN High Criticality active LIPITOR High Criticality active ZOLOFT High Criticality active LINCOCIN High Criticality active TERIMICIN High Criticality active VINCOMYCIN High Criticality active WELLBUTRIN High Criticality active CYMBALTA High Criticality active RESULTS Date Observation Value Provider Reference Range Interpretation Location basophil count, absolute 0.1 x10E3/uL [facility] 0.0-0.2 Eosinophil Absolute Count 0.2 X10E3/UL [facility] 0.0-0.4 monocyte count, blood, automated 0.6 X10E3/UL [facility] 0.1-0.9 lymphocyte count, blood, automated 3.1 X10E3/UL [facility] 0.7-3.1 Absolute Neutrophils 5.0 X10E3/UL [facility] 1.4-7.0 basophils as percent of blood leukocytes 1 % [facility] Not Estab. eosinophils as percent of blood leukocytes 2 % [facility] Not Estab. monocytes as percent of blood leukocytes 6 % [facility] Not Estab. lymphocytes as percent of blood leukocytes 35 % [facility] Not Estab. neutrophils as percent of blood leukocytes 56 % [facility] Not Estab. platelet count 301 X10E3/UL [facility] 165-390 4614/12 /15 red blood cell distribution width 11.8 % [facility] 11.7-15.4 mean corpuscular hemoglobin concentration, RBC 33.1 G/DL [facility] 31.5-35.7 mean corpuscular hemoglobin, RBC 30.5 pg [facility] 26.6-33.0 mean corpuscular volume, RBC 92 fL [facility] 79-97 hematocrit, blood 41.7 % [facility] 34.0-46.6 hemoglobin, blood 13.8 g/dL [facility] 11.1-15.9 erythrocyte (RBC) count 4.53 X10E6/UL [facility] 3.77-5.28 leukocyte count, blood 9.0 X10E3/UL [facility] 3.4-10.8 activated partial thromboplastin time (aPTT) 28 s [facility] 24-33 prothrombin time (patient) 10.9 s [facility] 9.1-12.0 international normalized ratio (INR) 1.0 [facility] 0.9-1.2 bacteria, urine microscopy None seen [facility] None seen/Few hyaline casts, urine None seen [facility] None seen epithelial cells, urine 0-10 [facility] 0 - 10 RBC, Urine None seen /hpf [facility] 0 - 2 WBC urine on microscopy None seen /hpf [facility] 0 - 5 nitrate, urine Negative [facility] Negative urobilinogen, urine, semiquantitative (dipstick) 0.2 [facility] 0.2-1.0 bilirubin, urine Negative [facility] Negative hemoglobin, urine, by dipstick Negative [facility] Negative ketones, urine, by test strip Negative [facility] Negative glucose, urine Negative [facility] Negative protein, urine, semiquantitative (dipstick) Negative [facility] Negative/Tra ce leukocyte esterase, urine, by dipstick Negative [facility] Negative appearance, urine Clear [facility] Clear urine color Yellow [facility] Yellow pH, urine, semiquantitative 7.0 [facility] 5.0-7.5 specific gravity, body fluid 1.017 [facility] 1.005-1.030 alanine aminotransferase (SGPT), serum 22 1/L [facility] 0-32 aspartate aminotransferase (SGOT), serum 20 1/L [facility] 0-40 alkaline phosphatase, serum 65 1/L [facility] 44-121 bilirubin, serum, total 0.3 mg/dL [facility] 0.0-1.2 albumin/globulin ratio, serum 1.5 [facility] 1.2-2.2 globulin, serum 2.9 [facility] 1.5-4.5 albumin, serum 4.3 g/dL [facility] 3.8-4.9 protein, total, serum 7.2 g/dL [facility] 6.0-8.5 calcium, serum 9.6 mg/dL [facility] 8.7-10.2 carbon dioxide, venous blood 25 mmol/L [facility] 20-29 chloride, serum 102 mmol/L [facility] 96-106 potassium, serum 4.4 mmol/L [facility] 3.5-5.2 sodium, serum 141 mmol/L [facility] 130-028 8628/12 /15 urea nitrogen/creatinine ratio, serum 18 [facility] 9-23 creatinine, serum 1.15 mg/dL [facility] 0.57-1.00 High urea nitrogen, blood 21 mg/dL [facility] 6-24 blood glucose, random 90 mg/dL [facility] 70-99 potassium, serum 4.3 mmol/L Kalie Farias platelet count 372 10*3/mm3 Kalie Farias hematocrit, blood 40.5 % Kalie Farias international normalized ratio (INR) 1.0 Kalie Farias creatinine, serum 0.75 mg/dL [facility] potassium, serum 4.5 mmol/L [facility] sodium, serum 142 mmol/L [facility] LDL cholesterol, serum 111 mg/dL [facility] cholesterol, serum 184 mg/dL [facility] platelet count 324 10*3/mm3 [facility] hematocrit, blood 41.3 % [facility] international normalized ratio (INR) 1.0 [facility] D-dimer quantitative mcg/mL 133 ug/mL [facility] B-type natriuretic peptide <5.0 [facility] alanine aminotransferase (SGPT), serum 25 1/L [facility] aspartate aminotransferase (SGOT), serum 26 1/L [facility] creatinine, serum 0.79 mg/dL [facility] potassium, serum 4.6 mmol/L [facility] sodium, serum 143 mmol/L [facility] lipoprotein, beta, serum, point, quantitative, calculated 149 mg/dL [facility] cholesterol, serum 229 mg/dL [facility] platelet count 228 10*3/mm3 [facility] hematocrit, blood 40.6 % [facility] creatinine, serum 0.79 mg/dL [facility] potassium, serum 4.6 mmol/L [facility] sodium, serum 141 mmol/L [facility] thyroid stimulating hormone, serum 1.30 u[IU]/mL [facility] anion gap, serum 10.1 [facility] globulins, serum, total 4.4 g/dL [facility] estimated glomerular filtration rate 0.96 mL/min [facility] albumin/globulin ratio, serum 0.8 [facility] protein, total, serum 8.1 g/dL [facility] albumin, serum 3.7 g/dL [facility] bilirubin, serum, total 0.35 mg/dL [facility] alkaline phosphatase, serum 93 1/L [facility] alanine aminotransferase (SGPT), serum 32 1/L [facility] aspartate aminotransferase (SGOT), serum 22 1/L [facility] calcium, serum 9.3 mg/dL [facility] blood glucose, fasting 83 mg/dL creatinine, serum 0.96 mg/dL [facility] urea nitrogen, blood 10.4 mg/dL [facility] carbon dioxide, serum, total 26 mmol/L chloride, serum 106 mmol/L [facility] potassium, serum 4.1 mmol/L [facility] sodium, serum 138 mmol/L [facility] platelet count 397 10*3/uL [facility] red blood cell distribution width 14.9 % [facility] mean corpuscular hemoglobin concentration, RBC 31.5 g/dL [facility] mean corpuscular hemoglobin, RBC 25.2 pg [facility] mean corpuscular volume, RBC 80.0 fL [facility] hematocrit, blood 38.4 % [facility] hemoglobin, blood 12.1 g/dL [facility] erythrocyte (RBC) count 4.80 10*6/mm3 [facility] leukocyte count, blood 12.0 10*3/mm3 [facility] 27.3 s cait Farias prothrombin time (patient) 10.4 s cait Farias international normalized ratio (INR) 1.0 cait Farias troponin I <0.04 cait Farias creatine kinase, serum 117 1/L [facility] anion gap, serum 11.7 [facility] globulins, serum, total 4.0 g/dL [facility] estimated glomerular filtration rate >60 [facility] albumin/globulin ratio, serum 0.9 [facility] protein, total, serum 7.4 g/dL [facility] albumin, serum 3.4 g/dL [facility] bilirubin, serum, total 0.20 mg/dL [facility] alkaline phosphatase, serum 80 1/L [facility] alanine aminotransferase (SGPT), serum 32 1/L [facility] aspartate aminotransferase (SGOT), serum 15 1/L [facility] calcium, serum 9.3 mg/dL [facility] blood glucose, fasting 118 mg/dL [facility] creatinine, serum 0.92 mg/dL [facility] urea nitrogen, blood 11.2 mg/dL [facility] carbon dioxide, serum, total 28 mmol/L [facility] chloride, serum 104 mmol/L [facility] potassium, serum 4.7 mmol/L [facility] sodium, serum 139 mmol/L [facility] platelet count 360 10*3/uL [facility] red blood cell distribution width 12.9 % [facility] mean corpuscular hemoglobin concentration, RBC 33.2 g/dL [facility] mean corpuscular hemoglobin, RBC 29.2 pg [facility] mean corpuscular volume, RBC 87.8 fL [facility] hematocrit, blood 38.8 % [facility] hemoglobin, blood 12.9 g/dL [facility] erythrocyte (RBC) count 4.42 10*6/mm3 [facility] monocytes as percent of blood leukocytes 9.2 % [facility] lymphocytes as percent of blood leukocytes 21.5 % [facility] leukocyte count, blood 11.3 10*3/mm3 [facility] identified on ur[facility]ysis No [facility] mucus on urinalysis Yes [facility] urine crystals, microscopic None [facility] epithelial cells, urine, per microscopy moderate [facility] casts, urine None [facility] WBC urine on microscopy 0-1 [facility] bacteria, urine microscopy Moderate [facility] RBC urine by microscopy None [facility] leukocyte esterase, urine, by dipstick Negative [facility] urobilinogen, urine, semiquantitative (dipstick) Normal [facility] nitrite, urine, semiquantitative Negative [facility] RBC, urine, dipstick Negative [facility] bilirubin, urine Negative [facility] ketones, urine, by test strip Negative [facility] glucose, urine, semiquantitative Normal [facility] protein, urine, semiquantitative (dipstick) Negative [facility] pH, urine, semiquantitative 7.0 [facility] specific gravity, urine 1.005 [facility] urine color Pale [facility] appearance, urine Clear [facility] globulins, serum, total 4.3 g/dL [facility] bilirubin, serum, direct 0.02 mg/dL [facility] albumin/globulin ratio, serum 0.9 [facility] protein, total, serum 8.2 g/dL [facility] albumin, serum 3.9 g/dL [facility] bilirubin, serum, total 0.37 mg/dL [facility] alkaline phosphatase, serum 96 1/L [facility] alanine aminotransferase (SGPT), serum 34 1/L [facility] aspartate aminotransferase (SGOT), serum 19 1/L [facility] troponin I <0.04 [facility] creatine kinase, serum 122 1/L [facility] anion gap, serum 12.2 [facility] estimated glomerular filtration rate >60 [facility] calcium, serum 9.8 mg/dL [facility] blood glucose, fasting 120 mg/dL [facility] creatinine, serum 0.98 mg/dL [facility] urea nitrogen, blood 10.3 mg/dL [facility] carbon dioxide, serum, total 32 mmol/L [facility] chloride, serum 102 mmol/L [facility] potassium, serum 4.2 mmol/L [facility] sodium, serum 142 mmol/L [facility] platelet count 393 10*3/uL [facility] red blood cell distribution width 12.8 % [facility] mean corpuscular hemoglobin concentration, RBC 33.6 g/dL [facility] mean corpuscular hemoglobin, RBC 30.2 pg [facility] mean corpuscular volume, RBC 90.1 fL [facility] hematocrit, blood 42.6 % [facility] hemoglobin, blood 14.3 g/dL [facility] erythrocyte (RBC) count 4.73 10*6/mm3 [facility] monocytes as percent of blood leukocytes 6.5 % [facility] lymphocytes as percent of blood leukocytes 19.9 % [facility] leukocyte count, blood 10.3 10*3/mm3 [facility] thyroid stimulating hormone, serum 1.86 u[IU]/mL [facility] thyroxine, serum, free 0.91 ng/dL [facility] thyroxine, serum, total 11.0 ug/dL [facility] platelet count 357 10*3/uL [facility] red blood cell distribution width 13.3 % [facility] mean corpuscular hemoglobin concentration, RBC 33.2 g/dL [facility] mean corpuscular hemoglobin, RBC 30.0 pg [facility] mean corpuscular volume, RBC 90.4 fL [facility] hematocrit, blood 40.4 % [facility] hemoglobin, blood 13.4 g/dL [facility] erythrocyte (RBC) count 4.47 10*6/mm3 [facility] monocytes as percent of blood leukocytes 8.1 % [facility] lymphocytes as percent of blood leukocytes 28.4 % [facility] leukocyte count, blood 9.9 10*3/mm3 [facility] estimated glomerular filtration rate >60 [facility] globulins, serum, total 3.9 g/dL [facility] albumin/globulin ratio, serum 0.9 [facility] protein, total, serum 7.5 g/dL [facility] albumin, serum 3.6 g/dL [facility] bilirubin, serum, total 0.30 mg/dL [facility] alkaline phosphatase, serum 69 1/L [facility] alanine aminotransferase (SGPT), serum 35 1/L [facility] aspartate aminotransferase (SGOT), serum 17 1/L [facility] calcium, serum 8.7 mg/dL [facility] blood glucose, fasting 79 mg/dL [facility] creatinine, serum 1.05 mg/dL [facility] urea nitrogen, blood 11 mg/dL [facility] carbon dioxide, serum, total 29 mmol/L [facility] chloride, serum 101 mmol/L Kalie Farias potassium, serum 4.3 mmol/L Kalie Farias sodium, serum 137 mmol/L Kalie Farias triglyceride, serum, fasting 188 mg/dL Kalie Farias HDL cholesterol, serum 50 mg/dL Kalie Farias LDL cholesterol, serum 151 mg/dL Kalie Farias cholesterol, serum 239 mg/dL Kalie Farias HISTORY OF MEDICATION USE Medication Status Instructions Dates Provider Indications Com elizabethrose Kerenvkelby 0.25 mg/0.5 mL pen injector active Inject 0.25mg once a week for 4 weeks, then increase to 0.5mg weekly. Stuatr Nova NP tramadol 50 mg tablet active Stuart Nova NP aripiprazole 2 mg tablet active take one pill a day Marisa Arcos bupropion HCl 150 mg tablet extended release 24 hr active take one pill a day Marisa Arcos oxycodone-acetami nophen 5-325 mg tablet active 1 tablet by mouth three times a day as needed for pain Fox Pack MD ciprofloxacin HCl 250 mg tablet completed 1 tablet twice a day - Marisa Arcos venlafaxine 150 mg capsule,extended release 24hr completed - Marisa Arcos omeprazole 20 mg capsule,delayed release(DR/EC) active take one pill a day Marisa Arcos CALCIUM CITRATE + D3 TABLET active Take 1 tablet twice a day Cindy Mohan CARVEDILOL 3.125 MG ORAL TABLET completed one tab twice daily - Cindy Mohan ASMANEX HFA 200 MCG/ACT INHALATION AEROSOL completed take one puff twice daily - Miles Platt PROAIR HFA 108 (90 BASE) MCG/ACT INHALATION AEROSOL SOLUTION completed 2 puffs every 4 to 6 hours as needed - Miles Platt Vitamin B-12 1,000 mcg tablet active Take 1 once a day Macey Longoria cholecalciferol (vitamin D3) 25 mcg (1,000 unit) capsule active 1 capsule once a day Jessica Michael ROBINOR 5 MG ORAL TABLET completed ONE TAB. DAILY - Miles Platt BENTYL 20 MG ORAL TABLET completed 1 every 6 hours as needed - Maceyfarhana Longoria VITAMIN D3 37797 UNIT ORAL CAPSULE completed 1 weekly - Aneatris Brown VITAMIN D completed 400 international units daily - Aneatris Brown CALCIUM 600-D TABLET completed daily - Aneatris Brown ZOLOFT 25 MG ORAL TABLET completed daily - Tessa Argueta MULTIVITAMINS ORAL CAPSULE active 1 tablet once a day Fox Pack MD ZETIA 10 MG ORAL TABLET completed ONE TAB. DAILY - Markos Sifuentes RN PRAVACHOL 40 MG ORAL TABLET completed Take 1 tab daily - Papi Madsen LIPITOR 40 MG ORAL TABLET completed ONE TAB. DAILY - Papo Trent LIPITOR 20 MG ORAL TABLET completed ONE TAB. DAILY - Papo Trent LEXAPRO 10 MG ORAL TABLET completed one per day - Markos Sifuentes RN FLOVENT HFA AEROSOL completed - Macey Longoria LIPITOR 10 MG ORAL TABLET completed ONE TAB. DAILY - Markos Sifuentes RN PRILOSEC 20 MG ORAL CAPSULE DELAYED RELEASE completed 1 tablet once a day - Stuart Nova NP VITAMIN E 400 UNIT ORAL CAPSULE completed 1 tab daily - Maroks Sifuentes RN NASACORT AQ AEROSOL completed as needed - Markos Sifuentes RN PREVACID 15 MG ORAL CAPSULE DELAYED RELEASE completed ONE TAB. DAILY - Markos Sifuentes RN PRAVACHOL 40 MG ORAL TABLET completed once daily - Markos Sifuentes RN NIASPAN 500 MG ORAL TABLET EXTENDED RELEASE completed ONE TAB. AT BEDTIME - Dispense as written - Cecilia Barton RN TRILIPIX 135 MG ORAL CAPSULE DELAYED RELEASE completed one tab. daily - Dispense as written - Markos Sifuentes RN VITAMIN C 500 MG ORAL TABLET completed 1 tablet by mouth daily - Mooseelonasusy Meraz XOPENEX HFA AEROSOL completed 1 puff by mouth every 4 hours as needed - Miles Platt ZYRTEC ALLERGY 10 MG ORAL TABLET completed 1 tablet by mouth daily - Markos Sifuentes RN VITAMIN E 400 UNIT ORAL CAPSULE completed 1 tablet by mouth twice daily - Joselyn Malloy ZOLOFT 25 MG ORAL TABLET completed 1/2 once daily - Darren Rankin DULERA 200-5 MCG/ACT INHALATION AEROSOL completed inhale 2 puffs every 4-6 hrs prn - Cindy Mohan increased from 6.25mg AMIODARONE HCL 200 MG ORAL TABLET completed take 1/2 & 1/2 of a 1/2 tab daily to equal your 150mg daily dose) - Markos Sifuentes RN ASPIRIN 81 MG ORAL TABLET CHEWABLE completed ONE TAB. DAILY - Cindy Mohan XANAX 0.25 MG ORAL TABLET completed 1 tab twice daily as needed for anxiety - Macey Von LASIX 20 MG ORAL TABLET completed 1 tablet by mouth daily - Macey Von XYZAL 5 MG ORAL TABLET completed QD - Cecile Sousa SOCIAL HISTORY Date Observation Value Provider drug use none Stuart Nova AIR TRAFFIC SYSTEMS TECHNICIAN alcohol use no Stuart Nova AIR TRAFFIC SYSTEMS TECHNICIAN passive cigarette sm alexus exposure no Stuart Nova AIR TRAFFIC SYSTEMS TECHNICIAN smoking status Never smoker Stuart Bustillo i AIR TRAFFIC SYSTEMS TECHNICIAN social history E&M Marital Statu s: L aiden with family/friends E thnicity: Smoking History: P atient has never smoked. Fox Pack MD social history reviewed E&M revi ewed - no changes required Fox Pack MD seatbelt usage 100 % Jessica Corona caffeine use, averag e drinks per day yes Jessica Loweand passive cigarette sm alexus exposure no Jessica Rodriguez smoking status Never smoker Jessica Lowe and social history E&M Marital Statu s: L aiden with family/friends E thnicity: Smoking History: P [place] has never smoked. Fox Pack MD social history reviewed E&M revi ewed - no changes required Fox Pack MD seatbelt usage 100 % Kim Teresa s caffeine use, averag e drinks per day yes Kim Les passive cigarette sm alexus exposure no Kim Les smoking status Never smoker Kim Teresa s social history E&M Marital Statu s: L aiden with family/friends E thnicity: Smoking History: P atient has never smoked. Fox Pack MD social history reviewed E&M revi ewed - no changes required Fox Pack MD seatbelt usage 100 % Andriy bhakta caffeine use, averag e drinks per day yes Jaretconrado Andrés passive cigarette sm alexus exposure no Jaretconrado Andrés smoking status Never smoker Tianapito Jones bhakta social history E&M Marital Statu s: L aiden with family/friends E thnicity: Smoking History: P at[place] has never smoked. Fox Pack MD social history reviewed E&M revi ewed - no changes required Fox Pack MD seatbelt usage 100 % Cindy elizondo caffeine use, averag e drinks per day yes Cindy Mohan passive cigarette sm alexus exposure no Cindy Mohan smoking status Never smoker Cindy elizondo social history E&M Marital Statu s: L aiden with family/friends E thnicity: Smoking History: P fab has never smoked. Fox Pack MD social history reviewed E&M revi ewed - no changes required Fox Pack MD number of grandchildren Fox Pack MD Miles [place] seatbelt usage 100 % Miles [facility] alcohol use, average drinks per day none [facility] alcohol use no Baudette Platt caffeine use, averag e drinks per day yes [facility] drug use none [facility] passive cigarette sm alexus exposure no [facility] smoking status Never smoker [facility] social history E&M Marital Statu s: L aiden with family/friends E thnicity: Smoking History: P fab has never smoked. Fox Pack MD social history reviewed E&M revi ewed - no changes required Fox Pack MD seatbelt usage 100 % Macey Von alcohol use, average drinks per day none Macey Von alcohol use no Macey Von caffeine use, averag e drinks per day yes Macey Von drug use none Macey Von passive cigarette sm alexus exposure no Macey Von smoking status Never smoker Maecy Von social history reviewed E&M revi ewed - no changes required Fox Pack MD social history reviewed E&M revi ewed - no changes required Fox Pack MD pacemaker surgery, hx of yes Omer Pack MD seatbelt usage 100 % Papi Kenney alcohol use, average drinks per day none Papi Madsen alcohol use no Papi montemayor caffeine use, averag e drinks per day yes Papi Madsen drug use none Papi Gupta sim passive cigarette sm alexus exposure no Papi Madsen smoking status Never smoker Papi Kenney seatbelt usage 100 % Joselyn Brownsusy boone alcohol use, average drinks per day none Joselyn Malloy alcohol use no Joselyn Malloy caffeine use, averag e drinks per day yes Joselyn Malloy drug use none Joselyn Malloy passive cigarette sm alexus exposure no Joselyn Malloy smoking status Never smoker Joselyn Zuniga n social history reviewed E&M reviewed Fox Pack MD drug use none Fox Farias social history reviewed E&M reviewed Fox Pack MD seatbelt usage 100 % Fox Pack MD drug use no Fox Farias passive cigarette sm alexus exposure no Markos Sifuentes RN social history reviewed E&M reviewed Markos Sifuentes RN smoking status never smoker Markos Sifuentes RN social history reviewed E&M reviewed Markos Sifuentes RN social history reviewed E&M reviewed Markos Sifuentes RN social history reviewed E&M reviewed Markos Sifuentes RN quit smoking, stage quit Markos ashton RN social history reviewed E&M reviewed Markos Sifuentes RN social history reviewed E&M reviewed Markos Sifuentes RN social history reviewed E&M reviewed Fox Pack MD social history E&M Marital Statu s: L aiden with family/friends E thnicity: Christie Hinojosa RN drug use none Christie boone RN social history reviewed E&M reviewed Crhistie Hinojosa RN caffeine use, averag e drinks per day yes [employer] alcohol use, average drinks per day none [employer] smoking status Non-smoker [employer] FUNCTIONAL STATUS Date Observation Value Provider HRA, CV Assess/Plan, Angina (inactive) Management Plan continue current therapy Stuart Nova NP HRA, CV Assess/Plan, Angina (inactive) Management Plan continue current therapy Fox Pack MD HRA, CV Assess/Plan, Angina (inactive) Management Plan continue current therapy Fox Pack MD HRA, CV Assess/Plan, Angina (inactive) Management Plan continue current therapy Fox Pack MD HRA, CV Assess/Plan, Angina (inactive) Management Plan continue current therapy Fox Pack MD HRA, CV Assess/Plan, Angina (inactive) Management Plan continue current therapy Fox Pack MD HRA, CV Assess/Plan, Angina (inactive) Management Plan continue current therapy Fox Pack MD MENTAL STATUS Date Observation Value Provider assessment of judgme nt and insight E&M Alert and oriented to time, place and person. Mood and affect are normal. Fox Pack MD assessment of judgme nt and insight E&M Alert and oriented to time, place and person. Mood and affect are normal. Fox Pack MD assessment of judgme nt and insight E&M Alert and oriented to time, place and person. Mood and affect are normal. Markos Sifuentes RN assessment of judgme nt and insight E&M Alert and oriented to time, place and person. Mood and affect are normal. Markos Sifuentes RN assessment of judgme nt and insight E&M Alert and oriented to time, place and person. Mood and affect are normal. Markos Sifuentes RN assessment of judgme nt and insight E&M Alert and oriented to time, place and person. Mood and affect are normal. Markos Sifuentes RN assessment of judgme nt and insight E&M Alert and oriented to time, place and person. Mood and affect are normal. Markos Sifuentes RN assessment of judgme nt and insight E&M Alert and oriented to time, place and person. Mood and affect are normal. Markos Sifuentes RN assessment of judgme nt and insight E&M Alert and oriented to time, place and person. Mood and affect are normal. Fox Pack MD assessment of judgme nt and insight E&M Alert and oriented to time, place and person. Mood and affect are normal. 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 HISTORY Family Member Condition Father Family History of Co ronary Artery Disease: Mother Family History of Co ronary Artery Disease: INSURANCE PROVIDERS Payer name Policy type / Coverage type Jocelyne red green party ID [email or web address] [id number] ADVANCE DIRECTIVES Name Date DISCUSSED - NO DECISION MADE TREATMENT PLAN Date Name Performer [id number],B, Fox boone MD [id number],S, Fox boone MD [id number],S, Fox boone MD [id number],S, Fox boone MD [id number], Fox boone MD [id number],S, Fox boone MD [id number],S, Fox boone MD [id number],S, Fox boone MD [id number],B, Fox boone MD Cardiology: N o angina Stuart Nova AIR TRAFFIC SYSTEMS TECHNICIAN Cardiology: B P today: 126/70 P rior BP: 111/88 (09/18/2022) Stuart Nova AIR TRAFFIC SYSTEMS TECHNICIAN Cardiology: s /p AICD Stuart Nova AIR TRAFFIC SYSTEMS TECHNICIAN Cardiology: L ast echo ef 60% Stuart Nova NP Cardiology Fox Pack MD Cardiology Fox Pack MD Cardiology Fox Pack MD Cardiology Fox Pack MD Cardiology Fox Pack MD Cardiology Fox Pack MD Cardiology Fox Pack MD Cardiology Fox Pack MD Cardiology Fox Pack MD Cardiology:Repeat ECHO Fox huffman MD Cardiology:The patie nt is using CPAP on a regular basis. The patient has been benefiting from therapy and should continue use. Fox Pack MD Cardiology Fox Pack MD Cardiology Fox Pack MD Cardiology Fox Pack MD Cardiology follow up Fox jain MD Cardiology follow up Fox jain MD Cardiology follow up Fox jain MD Cardiology follow up Fox jain MD Cardiology follow up Fox jain MD Cardiology Fox Pack MD Cardiology Fox Pack MD Cardiology Fox Pack MD Cardiology Fox Pack MD Cardiology Fox Pack MD Cardiology follow up Fox jain MD Cardiology follow up Fox jain MD Cardiology follow up Fox jain MD Cardiology follow up Fox jain MD Cardiology follow up Fox jain MD Cardiology Fox Pack MD Cardiology Fox Pack MD Cardiology Fox Pack MD Cardiology Fox Pack MD Cardiology Fox Pack MD Cardiology Fox Pack MD Cardiology Fox Pack MD Cardiology Fox Pack MD Cardiology Fox Pack MD Cardiology Fox Pack MD Cardiology Fox Pack MD Cardiology Fox Pack MD Cardiology Fox Pack MD Cardiology Fox Pack MD Cardiology Fox Pack MD Cardiology:Last EF 55% Fox huffman MD F/U: H er updated medication list for this problem includes: Coreg 12.5 Mg Tabs (Carvedilol) ..... One tab. twice daily Aspirin 81 Mg Chew (Aspirin) ..... One tab. daily Crestor 10 Mg Tabs (Rosuvastatin calcium) ..... One tab. daily Fox Pack MD F/U: H er updated medication list for this problem includes: Coreg 12.5 Mg Tabs (Carvedilol) ..... One tab. twice daily Lasix 20 Mg Tabs (Furosemide) ..... 1 tablet by mouth daily Aspirin 81 Mg Chew (Aspirin) ..... One tab. daily Fox Pack MD F/U: H er updated medication list for this problem includes: Coreg 12.5 Mg Tabs (Carvedilol) ..... One tab. twice daily Lasix 20 Mg Tabs (Furosemide) ..... 1 tablet by mouth daily Aspirin 81 Mg Chew (Aspirin) ..... One tab. daily Fox Pack MD F/U: H er updated medication list for this problem includes: Crestor 10 Mg Tabs (Rosuvastatin calcium) ..... One tab. daily Fox Pack MD F/U: H er updated medication list for this problem includes: Coreg 12.5 Mg Tabs (Carvedilol) ..... One tab. twice daily Aspirin 81 Mg Chew (Aspirin) ..... One tab. daily Crestor 10 Mg Tabs (Rosuvastatin calcium) ..... One tab. daily Fox Pack MD follow up : B P today: 124/68 P rior BP: 157/96 (08/10/2012) Labs Reviewed: C reat: 0.75 (11/19/2012) C hol: 184 (02/24/2012) HDL: 50 (04/16/2009) LDL: 111 (02/24/2012) T (04/16/2009) Fox Pack MD follow up : B P today: 124/68 P rior BP: 157/96 (08/10/2012) Labs Reviewed: C reat: 0.75 (11/19/2012) C hol: 184 (02/24/2012) HDL: 50 (04/16/2009) LDL: 111 (02/24/2012) T (04/16/2009) Fox Pack MD follow up : B P today: 124/68 Prior BP: 157/96 (08/10/2012) C HOL: 184 (02/24/2012) LDL: 111 (02/24/2012) HDL: 50 (04/16/2009) T (04/16/2009) Fox Pack MD follow up : B P today: 124/68 Prior BP: 157/96 (08/10/2012) N uclear Stress Findings: Test is negative by ECG criteria. No scintigraphic evidence of lexiscan induced ischemia or wall motion abnormality. Left ventricular ejection fraction is 67% which is within normal limits. 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 (04/27/2006) C arotid Doppler/Duplex: Nonnal Bilateral both Carotid and Vertebral systems. - [facility] (05/07/2012) C K: 117 (10/27/2010) Troponin I: <0.04 (10/27/2010) CHOL: 184 (02/24/2012) LDL: 111 (02/24/2012) HDL: 50 (04/16/2009) T (04/16/2009) H gb: 12.1 (04/04/2011) HCT: 40.5 (11/19/2012) Platelets: 372 (11/19/2012) R BC: 4.80 (04/04/2011) WBC: 12.0 (04/04/2011) B UN: 10.4 (04/04/2011) Creat: 0.75 (11/19/2012) Glucose: 83 (04/04/2011) N a+: 142 (11/19/2012) K+: 4.3 (12/03/2012) Cl: 106 (04/04/2011) PT: 10.4 (10/27/2010) INR: 1.0 (11/19/2012) P TT: 27.3 (10/27/2010) T SH: 1.30 (04/04/2011) T4 (total): 11.0 (04/16/2009) Fox Pack MD follow up : B P today: 124/68 Prior BP: 157/96 (08/10/2012) N uclear Stress Findings: Test is negative by ECG criteria. No scintigraphic evidence of lexiscan induced ischemia or wall motion abnormality. Left ventricular ejection fraction is 67% which is within normal limits. 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 (04/27/2006) C arotid Doppler/Duplex: Nonnal Bilateral both Carotid and Vertebral systems. - [facility] (05/07/2012) C K: 117 (10/27/2010) Troponin I: <0.04 (10/27/2010) CHOL: 184 (02/24/2012) LDL: 111 (02/24/2012) HDL: 50 (04/16/2009) T (04/16/2009) H gb: 12.1 (04/04/2011) HCT: 40.5 (11/19/2012) Platelets: 372 (11/19/2012) R BC: 4.80 (04/04/2011) WBC: 12.0 (04/04/2011) B UN: 10.4 (04/04/2011) Creat: 0.75 (11/19/2012) Glucose: 83 (04/04/2011) N a+: 142 (11/19/2012) K+: 4.3 (12/03/2012) Cl: 106 (04/04/2011) PT: 10.4 (10/27/2010) INR: 1.0 (11/19/2012) P TT: 27.3 (10/27/2010) T SH: 1.30 (04/04/2011) T4 (total): 11.0 (04/16/2009) Fox Pack MD routine : H er updated medication list for this problem includes: Coreg 12.5 Mg Tabs (Carvedilol) ..... One tab. twice daily Lasix 20 Mg Tabs (Furosemide) ..... 1 tablet by mouth daily Aspirin 81 Mg Chew (Aspirin) ..... One tab. daily BP today: / Prior BP: 124/77 (07/01/2011) N uclear Stress Findings: Test is negative by ECG criteria. No scintigraphic evidence of lexiscan induced ischemia or wall motion abnormality. Left ventricular ejection fraction is 67% which is within normal limits. 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 (04/27/2006) C arotid Doppler/Duplex: normal: [facility] (07/28/2006) C K: 117 (10/27/2010) Troponin I: <0.04 (10/27/2010) CHOL: 184 (02/24/2012) LDL: 111 (02/24/2012) HDL: 50 (04/16/2009) T (04/16/2009) H gb: 12.1 (04/04/2011) HCT: 41.3 (12/17/2011) Platelets: 324 (12/17/2011) R BC: 4.80 (04/04/2011) WBC: 12.0 (04/04/2011) B UN: 10.4 (04/04/2011) Creat: 0.79 (12/17/2011) Glucose: 83 (04/04/2011) N a+: 143 (12/17/2011) K+: 4.6 (12/17/2011) Cl: 106 (04/04/2011) PT: 10.4 (10/27/2010) INR: 1.0 (12/17/2011) P TT: 27.3 (10/27/2010) T SH: 1.30 (04/04/2011) T4 (total): 11.0 (04/16/2009) Fox Pack MD routine : H er updated medication list for this problem includes: Coreg 12.5 Mg Tabs (Carvedilol) ..... One tab. twice daily Aspirin 81 Mg Chew (Aspirin) ..... One tab. daily Xanax 0.25 Mg Tabs (Alprazolam) ..... As needed BP today: / Prior BP: 124/77 (07/01/2011) H gb: 12.1 (04/04/2011) HCT: 41.3 (12/17/2011) Platelets: 324 (12/17/2011) R BC: 4.80 (04/04/2011) WBC: 12.0 (04/04/2011) B UN: 10.4 (04/04/2011) Creat: 0.79 (12/17/2011) Glucose: 83 (04/04/2011) N a+: 143 (12/17/2011) K+: 4.6 (12/17/2011) Cl: 106 (04/04/2011) Anion Gap: 10.1 (04/04/2011) Calcium: 9.3 (04/04/2011) TSH: 1.30 (04/04/2011) T4 (total): 11.0 (04/16/2009) H olter Monitor: SR-ST HR 70-156 F REQ VE WITH 6373 PAIRS AND 32 RUNS OF V-TACH B OY-ROGG-XEPM 1 2 DIARY EVENTS NOTED WITH STRIPS SAVED (08/04/2006) H olter Monitor Comments: SR with ST rates from 77-116bpm. Very frequent VE beats with 3292 johnathan and 9 runs V tach. Longest run 3 beats @ 171bpm. Fastest run 3 beats @ 186bpm. 822 Bigeminy and 260 quadrigeminy VE episodes noted. 4 isolated SVE beats with no pairs or runs noted. 4 diary events noted strips saved. [facility] (07/10/2006) N uclear Stress Findings: Test is negative by ECG criteria. No scintigraphic evidence of lexiscan induced ischemia or wall motion abnormality. Left ventricular ejection fraction is 67% which is within normal limits. 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 (04/27/2006) Fox Pack MD routine : T he following medications were removed from the medication list: Zetia 10 Mg Tabs (Ezetimibe) ..... One tab. daily Her updated medication list for this problem includes: Coreg 12.5 Mg Tabs (Carvedilol) ..... One tab. twice daily Aspirin 81 Mg Chew (Aspirin) ..... One tab. daily Crestor 10 Mg Tabs (Rosuvastatin calcium) ..... One tab. daily BP today: / Prior BP: 124/77 (07/01/2011) N uclear Stress Findings: Test is negative by ECG criteria. No scintigraphic evidence of lexiscan induced ischemia or wall motion abnormality. Left ventricular ejection fraction is 67% which is within normal limits. 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 (04/27/2006) C arotid Doppler/Duplex: normal: [facility] (07/28/2006) C K: 117 (10/27/2010) Troponin I: <0.04 (10/27/2010) CHOL: 184 (02/24/2012) LDL: 111 (02/24/2012) HDL: 50 (04/16/2009) T (04/16/2009) H gb: 12.1 (04/04/2011) HCT: 41.3 (12/17/2011) Platelets: 324 (12/17/2011) R BC: 4.80 (04/04/2011) WBC: 12.0 (04/04/2011) B UN: 10.4 (04/04/2011) Creat: 0.79 (12/17/2011) Glucose: 83 (04/04/2011) N a+: 143 (12/17/2011) K+: 4.6 (12/17/2011) Cl: 106 (04/04/2011) PT: 10.4 (10/27/2010) INR: 1.0 (12/17/2011) P TT: 27.3 (10/27/2010) T SH: 1.30 (04/04/2011) T4 (total): 11.0 (04/16/2009) Fox Pack MD routine : H er updated medication list for this problem includes: Coreg 12.5 Mg Tabs (Carvedilol) ..... One tab. twice daily Lasix 20 Mg Tabs (Furosemide) ..... 1 tablet by mouth daily Aspirin 81 Mg Chew (Aspirin) ..... One tab. daily Prior BP: 124/77 (07/01/2011) Labs Reviewed: C reat: 0.79 (12/17/2011) C hol: 184 (02/24/2012) HDL: 50 (04/16/2009) LDL: 111 (02/24/2012) T (04/16/2009) Fox Pack MD routine : H er updated medication list for this problem includes: Coreg 12.5 Mg Tabs (Carvedilol) ..... One tab. twice daily Lasix 20 Mg Tabs (Furosemide) ..... 1 tablet by mouth daily Aspirin 81 Mg Chew (Aspirin) ..... One tab. daily Prior BP: 124/77 (07/01/2011) Labs Reviewed: C reat: 0.79 (12/17/2011) C hol: 184 (02/24/2012) HDL: 50 (04/16/2009) LDL: 111 (02/24/2012) T (04/16/2009) Fox Pack MD routine : T he following medications were removed from the medication list: Zetia 10 Mg Tabs (Ezetimibe) ..... One tab. daily Her updated medication list for this problem includes: Crestor 10 Mg Tabs (Rosuvastatin calcium) ..... One tab. daily BP today: / Prior BP: 124/77 (07/01/2011) C HOL: 184 (02/24/2012) LDL: 111 (02/24/2012) HDL: 50 (04/16/2009) T (04/16/2009) Fox Pack MD routine : T he following medications were removed from the medication list: Zetia 10 Mg Tabs (Ezetimibe) ..... One tab. daily Her updated medication list for this problem includes: Coreg 12.5 Mg Tabs (Carvedilol) ..... One tab. twice daily Aspirin 81 Mg Chew (Aspirin) ..... One tab. daily Crestor 10 Mg Tabs (Rosuvastatin calcium) ..... One tab. daily BP today: / Prior BP: 124/77 (07/01/2011) N uclear Stress Findings: Test is negative by ECG criteria. No scintigraphic evidence of lexiscan induced ischemia or wall motion abnormality. Left ventricular ejection fraction is 67% which is within normal limits. 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 (04/27/2006) C arotid Doppler/Duplex: normal: [facility] (07/28/2006) C K: 117 (10/27/2010) Troponin I: <0.04 (10/27/2010) CHOL: 184 (02/24/2012) LDL: 111 (02/24/2012) HDL: 50 (04/16/2009) T (04/16/2009) H gb: 12.1 (04/04/2011) HCT: 41.3 (12/17/2011) Platelets: 324 (12/17/2011) R BC: 4.80 (04/04/2011) WBC: 12.0 (04/04/2011) B UN: 10.4 (04/04/2011) Creat: 0.79 (12/17/2011) Glucose: 83 (04/04/2011) N a+: 143 (12/17/2011) K+: 4.6 (12/17/2011) Cl: 106 (04/04/2011) PT: 10.4 (10/27/2010) INR: 1.0 (12/17/2011) P TT: 27.3 (10/27/2010) T SH: 1.30 (04/04/2011) T4 (total): 11.0 (04/16/2009) Fox Pack MD routine - device angelo ck prior : H er updated medication list for this problem includes: Coreg 6.25 Mg Tabs (Carvedilol) ..... Twice daily Lasix 20 Mg Tabs (Furosemide) ..... 1 tablet by mouth daily Aspirin 81 Mg Chew (Aspirin) ..... One tab. 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 (04/27/2006) C arotid Doppler/Duplex: normal: [facility] (07/28/2006) C K: 117 (10/27/2010) Troponin I: <0.04 (10/27/2010) CHOL: 239 (04/16/2009) LDL: 151 (04/16/2009) HDL: 50 (04/16/2009) T (04/16/2009) H gb: 12.1 (04/04/2011) HCT: 38.4 (04/04/2011) RBC: 4.80 (04/04/2011) WBC: 12.0 (04/04/2011) B UN: 10.4 (04/04/2011) Creat: 0.96 (04/04/2011) Glucose: 83 (04/04/2011) N a+: 138 (04/04/2011) K+: 4.1 (04/04/2011) Cl: 106 (04/04/2011) PT: 10.4 (10/27/2010) INR: 1.0 (10/27/2010) P TT: 27.3 (10/27/2010) T SH: 1.30 (04/04/2011) T4 (total): 11.0 (04/16/2009) Fox Pack MD routine - device angelo ck prior : H er updated medication list for this problem includes: Coreg 6.25 Mg Tabs (Carvedilol) ..... Twice daily Aspirin 81 Mg Chew (Aspirin) ..... One tab. daily Xanax 0.25 Mg Tabs (Alprazolam) ..... As needed BP today: 124/77 Prior BP: 121/80 (11/26/2010) H gb: 12.1 (04/04/2011) HCT: 38.4 (04/04/2011) RBC: 4.80 (04/04/2011) WBC: 12.0 (04/04/2011) B UN: 10.4 (04/04/2011) Creat: 0.96 (04/04/2011) Glucose: 83 (04/04/2011) N a+: 138 (04/04/2011) K+: 4.1 (04/04/2011) Cl: 106 (04/04/2011) Anion Gap: 10.1 (04/04/2011) Calcium: 9.3 (04/04/2011) TSH: 1.30 (04/04/2011) T4 (total): 11.0 (04/16/2009) H olter Monitor: SR-ST HR 70-156 F REQ VE WITH 6373 PAIRS AND 32 RUNS OF V-TACH B [id number] 1 2 DIARY EVENTS NOTED WITH STRIPS SAVED (08/04/2006) H olter Monitor Comments: SR with ST rates from 77-116bpm. Very frequent VE beats with 3292 johnathan and 9 runs V tach. Longest run 3 beats @ 171bpm. Fastest run 3 beats @ 186bpm. 822 Bigeminy and 260 quadrigeminy VE episodes noted. 4 isolated SVE beats with no pairs or runs noted. 4 diary events noted strips saved. [facility] (07/10/2006) E chocardiogram: Normal Mitral valve. Normal Aodic valve. Left Ventricular Hypertrophy. Mild left ventricular systolic dysfunction. Right Ventricular Enlargement. Mild Anterior wall hypokinesis compatible with ischemia or infarction. Mild Mitral Regurgitation. Mild Tricuspid Regurgitation. Trace Pulmonary regurgitation. Right Ventricular Enlargement with RVSP 28 mmHg. EF 55%. Since 01-31-2010, No Significant Changes. [facility] (04/09/2011) C ardiac Cath: PREDOMINANTLY NONISCHEMIC CARDIOMYOPATHY 2 + MITRAL REGURG E LEVATED LEFT VENTRICULAR DIASTOLIC VOLUME M ODERATE GLOBAL DYS. (04/27/2006) Fox Pack MD routine - device angelo ck prior : T he following medications were removed from the medication list: Lipitor 10 Mg Tabs (Atorvastatin calcium) ..... One tab. daily Her updated medication list for this problem includes: Coreg 6.25 Mg Tabs (Carvedilol) ..... Twice daily Aspirin 81 Mg Chew (Aspirin) ..... One tab. daily BP today: 124/77 Prior BP: 121/80 (11/26/2010) Cardiac Cath: PREDOMINANTLY NONISCHEMIC CARDIOMYOPATHY 2 + MITRAL REGURG E LEVATED LEFT VENTRICULAR DIASTOLIC VOLUME M ODERATE GLOBAL DYS. (04/27/2006) C arotid Doppler/Duplex: normal: [facility] (07/28/2006) C K: 117 (10/27/2010) Troponin I: <0.04 (10/27/2010) CHOL: 239 (04/16/2009) LDL: 151 (04/16/2009) HDL: 50 (04/16/2009) T (04/16/2009) H gb: 12.1 (04/04/2011) HCT: 38.4 (04/04/2011) RBC: 4.80 (04/04/2011) WBC: 12.0 (04/04/2011) B UN: 10.4 (04/04/2011) Creat: 0.96 (04/04/2011) Glucose: 83 (04/04/2011) N a+: 138 (04/04/2011) K+: 4.1 (04/04/2011) Cl: 106 (04/04/2011) PT: 10.4 (10/27/2010) INR: 1.0 (10/27/2010) P TT: 27.3 (10/27/2010) T SH: 1.30 (04/04/2011) T4 (total): 11.0 (04/16/2009) Fox Pack MD routine - device angelo ck prior : H er updated medication list for this problem includes: Coreg 6.25 Mg Tabs (Carvedilol) ..... Twice daily Lasix 20 Mg Tabs (Furosemide) ..... 1 tablet by mouth daily Aspirin 81 Mg Chew (Aspirin) ..... One tab. daily BP today: 124/77 P rior BP: 121/80 (11/26/2010) Labs Reviewed: C reat: 0.96 (04/04/2011) C hol: 239 (04/16/2009) HDL: 50 (04/16/2009) LDL: 151 (04/16/2009) T (04/16/2009) Fox Pack MD routine - device angelo ck prior : H er updated medication list for this problem includes: Coreg 6.25 Mg Tabs (Carvedilol) ..... Twice daily Lasix 20 Mg Tabs (Furosemide) ..... 1 tablet by mouth daily Aspirin 81 Mg Chew (Aspirin) ..... One tab. daily BP today: 124/77 P rior BP: 121/80 (11/26/2010) Labs Reviewed: C reat: 0.96 (04/04/2011) C hol: 239 (04/16/2009) HDL: 50 (04/16/2009) LDL: 151 (04/16/2009) T (04/16/2009) Fox Pack MD routine: H er updated medication list for this problem includes: Coreg 3.125 Mg Tabs (Carvedilol) ..... One tab. twice daily Lasix 20 Mg Tabs (Furosemide) ..... 1 tablet by mouth daily Aspirin 81 Mg Chew (Aspirin) ..... One tab. daily BP today: 121/80 Prior BP: 140/99 (05/21/2010) C ardiac Cath: PREDOMINANTLY NONISCHEMIC CARDIOMYOPATHY 2 + MITRAL REGURG E LEVATED LEFT VENTRICULAR DIASTOLIC VOLUME M ODERATE GLOBAL DYS. (04/27/2006) C arotid Doppler/Duplex: normal: [facility] (07/28/2006) C K: 122 (11/08/2009) Troponin I: <0.04 (11/08/2009) CHOL: 239 (04/16/2009) LDL: 151 (04/16/2009) HDL: 50 (04/16/2009) T (04/16/2009) H gb: 14.3 (11/08/2009) HCT: 42.6 (11/08/2009) RBC: 4.73 (11/08/2009) WBC: 10.3 (11/08/2009) B UN: 10.3 (11/08/2009) Creat: 0.98 (11/08/2009) Glucose: 120 (11/08/2009) N a+: 142 (11/08/2009) K+: 4.2 (11/08/2009) Cl: 102 (11/08/2009) TSH: 1.86 (04/16/2009) T4 (total): 11.0 (04/16/2009) Fox Pack MD routine: H er updated medication list for this problem includes: Coreg 3.125 Mg Tabs (Carvedilol) ..... One tab. twice daily Aspirin 81 Mg Chew (Aspirin) ..... One tab. daily Xanax 0.25 Mg Tabs (Alprazolam) ..... As needed BP today: 121/80 Prior BP: 140/99 (05/21/2010) H gb: 14.3 (11/08/2009) HCT: 42.6 (11/08/2009) RBC: 4.73 (11/08/2009) WBC: 10.3 (11/08/2009) B UN: 10.3 (11/08/2009) Creat: 0.98 (11/08/2009) Glucose: 120 (11/08/2009) N a+: 142 (11/08/2009) K+: 4.2 (11/08/2009) Cl: 102 (11/08/2009) Anion Gap: 12.2 (11/08/2009) Calcium: 9.8 (11/08/2009) TSH: 1.86 (04/16/2009) T4 (total): 11.0 (04/16/2009) H olter Monitor: SR-ST HR 70-156 F REQ VE WITH 6373 PAIRS AND 32 RUNS OF V-TACH B [id number] 1 2 DIARY EVENTS NOTED WITH STRIPS SAVED (08/04/2006) H olter Monitor Comments: SR with ST rates from 77-116bpm. Very frequent VE beats with 3292 jonhathan and 9 runs V tach. Longest run 3 beats @ 171bpm. Fastest run 3 beats @ 186bpm. 822 Bigeminy and 260 quadrigeminy VE episodes noted. 4 isolated SVE beats with no pairs or runs noted. 4 diary events noted strips saved. [facility] (07/10/2006) E chocardiogram: Right Atrial enlargement. Normal mitral valve. Normal aortic valve. M ild left ventricular systolic dysfunction. EF 50%. Right ventricular enlargement. Mild Anterior wall hypokinesis compatible with ischemia or infarction. Mild apical wall hypokinesis compatible with ischemia or infarction. No pericardia I effusion identified. Mild Mitral Regurgitation Mild tricuspid regurgitation Right ventricular systolic pressure 28mmHg with mild tricuspid regurgitation. C ompared with study of August 16, 2008, no significant changes have occurred. [facility] (01/31/2010) C ardiac Cath: PREDOMINANTLY NONISCHEMIC CARDIOMYOPATHY 2 + MITRAL REGURG E LEVATED LEFT VENTRICULAR DIASTOLIC VOLUME M ODERATE GLOBAL DYS. (04/27/2006) Fox Pack MD routine: T he following medications were removed from the medication list: Pravachol 40 Mg Tabs (Pravastatin sodium) ..... Once daily Her updated medication list for this problem includes: Coreg 3.125 Mg Tabs (Carvedilol) ..... One tab. twice daily Aspirin 81 Mg Chew (Aspirin) ..... One tab. daily Lipitor 10 Mg Tabs (Atorvastatin calcium) ..... One tab. daily & #13;BP today: 121/80 Prior BP: 140/99 (05/21/2010) C ardiac Cath: PREDOMINANTLY NONISCHEMIC CARDIOMYOPATHY 2 + MITRAL REGURG E LEVATED LEFT VENTRICULAR DIASTOLIC VOLUME M ODERATE GLOBAL DYS. (04/27/2006) C arotid Doppler/Duplex: normal: [facility] (07/28/2006) C K: 122 (11/08/2009) Troponin I: <0.04 (11/08/2009) CHOL: 239 (04/16/2009) LDL: 151 (04/16/2009) HDL: 50 (04/16/2009) T (04/16/2009) H gb: 14.3 (11/08/2009) HCT: 42.6 (11/08/2009) RBC: 4.73 (11/08/2009) WBC: 10.3 (11/08/2009) B UN: 10.3 (11/08/2009) Creat: 0.98 (11/08/2009) Glucose: 120 (11/08/2009) Na+: 142 (11/08/2009) K+: 4.2 (11/08/2009) Cl: 102 (11/08/2009) TSH: 1.86 (04/16/2009) T4 (total): 11.0 (04/16/2009) Fox Pack MD routine: H er updated medication list for this problem includes: Coreg 3.125 Mg Tabs (Carvedilol) ..... One tab. twice daily Lasix 20 Mg Tabs (Furosemide) ..... 1 tablet by mouth daily Aspirin 81 Mg Chew (Aspirin) ..... One tab. daily BP today: 121/80 P rior BP: 140/99 (05/21/2010) Labs Reviewed: C reat: 0.98 (11/08/2009) C hol: 239 (04/16/2009) HDL: 50 (04/16/2009) LDL: 151 (04/16/2009) T (04/16/2009) Fox Pack MD routine: H er updated medication list for this problem includes: Coreg 3.125 Mg Tabs (Carvedilol) ..... One tab. twice daily Lasix 20 Mg Tabs (Furosemide) ..... 1 tablet by mouth daily Aspirin 81 Mg Chew (Aspirin) ..... One tab. daily BP today: 140/99 Prior BP: 126/83 (11/13/2009) C ardiac Cath: PREDOMINANTLY NONISCHEMIC CARDIOMYOPATHY 2 + MITRAL REGURG E LEVATED LEFT VENTRICULAR DIASTOLIC VOLUME M ODERATE GLOBAL DYS. (04/27/2006) C arotid Doppler/Duplex: normal: [facility] (07/28/2006) C K: 122 (11/08/2009) Troponin I: <0.04 (11/08/2009) CHOL: 239 (04/16/2009) LDL: 151 (04/16/2009) HDL: 50 (04/16/2009) T (04/16/2009) H gb: 14.3 (11/08/2009) HCT: 42.6 (11/08/2009) RBC: 4.73 (11/08/2009) WBC: 10.3 (11/08/2009) B UN: 10.3 (11/08/2009) Creat: 0.98 (11/08/2009) Glucose: 120 (11/08/2009) N a+: 142 (11/08/2009) K+: 4.2 (11/08/2009) Cl: 102 (11/08/2009) TSH: 1.86 (04/16/2009) T4 (total): 11.0 (04/16/2009) Fox Pack MD routine: H er updated medication list for this problem includes: Coreg 3.125 Mg Tabs (Carvedilol) ..... One tab. twice daily Aspirin 81 Mg Chew (Aspirin) ..... One tab. daily Xanax 0.25 Mg Tabs (Alprazolam) ..... As needed BP today: 140/99 Prior BP: 126/83 (11/13/2009) H gb: 14.3 (11/08/2009) HCT: 42.6 (11/08/2009) RBC: 4.73 (11/08/2009) WBC: 10.3 (11/08/2009) B UN: 10.3 (11/08/2009) Creat: 0.98 (11/08/2009) Glucose: 120 (11/08/2009) N a+: 142 (11/08/2009) K+: 4.2 (11/08/2009) Cl: 102 (11/08/2009) Anion Gap: 12.2 (11/08/2009) Calcium: 9.8 (11/08/2009) TSH: 1.86 (04/16/2009) T4 (total): 11.0 (04/16/2009) H olter Monitor: SR-ST HR 70-156 F REQ VE WITH 6373 PAIRS AND 32 RUNS OF V-TACH B [id number] 1 2 DIARY EVENTS NOTED WITH STRIPS SAVED (08/04/2006) H olter Monitor Comments: SR with ST rates from 77-116bpm. Very frequent VE beats with 3292 johnathan and 9 runs V tach. Longest run 3 beats @ 171bpm. Fastest run 3 beats @ 186bpm. 822 Bigeminy and 260 quadrigeminy VE episodes noted. 4 isolated SVE beats with no pairs or runs noted. 4 diary events noted strips saved. [facility] (07/10/2006) E chocardiogram: Right Atrial enlargement. Normal mitral valve. Normal aortic valve. M ild left ventricular systolic dysfunction. EF 50%. Right ventricular enlargement. Mild Anterior wall hypokinesis compatible with ischemia or infarction. Mild apical wall hypokinesis compatible with ischemia or infarction. No pericardia I effusion identified. Mild Mitral Regurgitation Mild tricuspid regurgitation Right ventricular systolic pressure 28mmHg with mild tricuspid regurgitation. C ompared with study of August 16, 2008, no significant changes have occurred. [facility] (01/31/2010) C ardiac Cath: PREDOMINANTLY NONISCHEMIC CARDIOMYOPATHY 2 + MITRAL REGURG E LEVATED LEFT VENTRICULAR DIASTOLIC VOLUME M ODERATE GLOBAL DYS. (04/27/2006) Fox Pack MD routine: H er updated medication list for this problem includes: Coreg 3.125 Mg Tabs (Carvedilol) ..... One tab. twice daily Aspirin 81 Mg Chew (Aspirin) ..... One tab. daily Pravachol 40 Mg Tabs (Pravastatin sodium) ..... Once daily BP today: 140/99 Prior BP: 126/83 (11/13/2009) C ardiac Cath: PREDOMINANTLY NONISCHEMIC CARDIOMYOPATHY 2 + MITRAL REGURG E LEVATED LEFT VENTRICULAR DIASTOLIC VOLUME M ODERATE GLOBAL DYS. (04/27/2006) C arotid Doppler/Duplex: normal: [facility] (07/28/2006) C K: 122 (11/08/2009) Troponin I: <0.04 (11/08/2009) CHOL: 239 (04/16/2009) LDL: 151 (04/16/2009) HDL: 50 (04/16/2009) T (04/16/2009) H gb: 14.3 (11/08/2009) HCT: 42.6 (11/08/2009) RBC: 4.73 (11/08/2009) WBC: 10.3 (11/08/2009) B UN: 10.3 (11/08/2009) Creat: 0.98 (11/08/2009) Glucose: 120 (11/08/2009) N a+: 142 (11/08/2009) K+: 4.2 (11/08/2009) Cl: 102 (11/08/2009) TSH: 1.86 (04/16/2009) T4 (total): 11.0 (04/16/2009) Fox Pack MD routine: H er updated medication list for this problem includes: Coreg 3.125 Mg Tabs (Carvedilol) ..... One tab. twice daily Lasix 20 Mg Tabs (Furosemide) ..... 1 tablet by mouth daily Aspirin 81 Mg Chew (Aspirin) ..... One tab. daily BP today: 140/99 P rior BP: 126/83 (11/13/2009) Labs Reviewed: C reat: 0.98 (11/08/2009) C hol: 239 (04/16/2009) HDL: 50 (04/16/2009) LDL: 151 (04/16/2009) T (04/16/2009) Fox Pack MD post ER visit: T he following medications were removed from the medication list: Amiodarone Hcl 200 Mg Tabs (Amiodarone hcl) ..... Take 1/2 & 1/2 of a 1/2 tab daily to equal your 150mg daily dose) Her updated medication list for this problem includes: Coreg 3.125 Mg Tabs (Carvedilol) ..... One tab. twice daily Lasix 20 Mg Tabs (Furosemide) ..... 1 tablet by mouth daily Aspirin 81 Mg Chew (Aspirin) ..... One tab. daily BP today: 126/83 Prior BP: 126/88 (05/22/2009) C ardiac Cath: PREDOMINANTLY NONISCHEMIC CARDIOMYOPATHY 2 + MITRAL REGURG E LEVATED LEFT VENTRICULAR DIASTOLIC VOLUME M ODERATE GLOBAL DYS. (04/27/2006) C arotid Doppler/Duplex: normal: [facility] (07/28/2006) C HOL: 239 (04/16/2009) LDL: 151 (04/16/2009) HDL: 50 (04/16/2009) T (04/16/2009) H gb: 13.4 (04/16/2009) HCT: 40.4 (04/16/2009) RBC: 4.47 (04/16/2009) WBC: 9.9 (04/16/2009) B UN: 11 (04/16/2009) Creat: 1.05 (04/16/2009) Glucose: 79 (04/16/2009) N a+: 137 (04/16/2009) K+: 4.3 (04/16/2009) Cl: 101 (04/16/2009) TSH: 1.86 (04/16/2009) T4 (total): 11.0 (04/16/2009) Orders: C omplete Echo ([id number]) Fox Pack MD post ER visit: T he following medications were removed from the medication list: Amiodarone Hcl 200 Mg Tabs (Amiodarone hcl) ..... Take 1/2 & 1/2 of a 1/2 tab daily to equal your 150mg daily dose) Her updated medication list for this problem includes: Coreg 3.125 Mg Tabs (Carvedilol) ..... One tab. twice daily Aspirin 81 Mg Chew (Aspirin) ..... One tab. daily Xanax 0.25 Mg Tabs (Alprazolam) ..... As needed BP today: 126/83 Prior BP: 126/88 (05/22/2009) H gb: 13.4 (04/16/2009) HCT: 40.4 (04/16/2009) RBC: 4.47 (04/16/2009) WBC: 9.9 (04/16/2009) BUN: 11 (04/16/2009) Creat: 1.05 (04/16/2009) Glucose: 79 (04/16/2009) N a+: 137 (04/16/2009) K+: 4.3 (04/16/2009) Cl: 101 (04/16/2009) Calcium: 8.7 (04/16/2009) TSH: 1.86 (04/16/2009) T4 (total): 11.0 (04/16/2009) H olter Monitor: SR-ST HR 70-156 F REQ VE WITH 6373 PAIRS AND 32 RUNS OF V-TACH B [id number] 1 2 DIARY EVENTS NOTED WITH STRIPS SAVED (08/04/2006) H olter Monitor Comments: SR with ST rates from 77-116bpm. Very frequent VE beats with 3292 johnathan and 9 runs V tach. Longest run 3 beats @ 171bpm. Fastest run 3 beats @ 186bpm. 822 Bigeminy and 260 quadrigeminy VE episodes noted. 4 isolated SVE beats with no pairs or runs noted. 4 diary events noted strips saved. [facility] (07/10/2006) E chocardiogram: Mild LV systolic dysfunction. EF 46%. RVE. Mild lateral & apical wall hypokinesis compatible with ischemia or infarction. Mild MR & TR. RVSP 31mmHg. RV catheter. Compared with study 02/16/08, no significant change. [facility] (08/16/2008) C ardiac Cath: PREDOMINANTLY NONISCHEMIC CARDIOMYOPATHY 2 + MITRAL REGURG E LEVATED LEFT VENTRICULAR DIASTOLIC VOLUME M ODERATE GLOBAL DYS. (04/27/2006) Fox Pack MD post ER visit: T he following medications were removed from the medication list: Trilipix 135 Mg Cpdr (Choline fenofibrate) ..... One tab. daily - dispense as written Her updated medication list for this problem includes: Coreg 3.125 Mg Tabs (Carvedilol) ..... One tab. twice daily Aspirin 81 Mg Chew (Aspirin) ..... One tab. daily Pravachol 40 Mg Tabs (Pravastatin sodium) ..... Once daily BP today: 126/83 Prior BP: 126/88 (05/22/2009) C ardiac Cath: PREDOMINANTLY NONISCHEMIC CARDIOMYOPATHY 2 + MITRAL REGURG E LEVATED LEFT VENTRICULAR DIASTOLIC VOLUME M ODERATE GLOBAL DYS. (04/27/2006) C arotid Doppler/Duplex: normal: [facility] (07/28/2006) C HOL: 239 (04/16/2009) LDL: 151 (04/16/2009) HDL: 50 (04/16/2009) T (04/16/2009) Hgb: 13.4 (04/16/2009) HCT: 40.4 (04/16/2009) RBC: 4.47 (04/16/2009) WBC: 9.9 (04/16/2009) B UN: 11 (04/16/2009) Creat: 1.05 (04/16/2009) Glucose: 79 (04/16/2009) N a+: 137 (04/16/2009) K+: 4.3 (04/16/2009) Cl: 101 (04/16/2009) TSH: 1.86 (04/16/2009) T4 (total): 11.0 (04/16/2009) Orders: S tress Test - Adenosine ([id number]) Fox Pack MD post ER visit: H er updated medication list for this problem includes: Coreg 3.125 Mg Tabs (Carvedilol) ..... One tab. twice daily Lasix 20 Mg Tabs (Furosemide) ..... 1 tablet by mouth daily Aspirin 81 Mg Chew (Aspirin) ..... One tab. daily BP today: 126/83 P rior BP: 126/88 (05/22/2009) Labs Reviewed: C reat: 1.05 (04/16/2009) C hol: 239 (04/16/2009) HDL: 50 (04/16/2009) LDL: 151 (04/16/2009) T (04/16/2009) Fox Pack MD 6 month follow-up: H er updated medication list for this problem includes: Amiodarone Hcl 200 Mg Tabs (Amiodarone hcl) ..... Take 1/2 & 1/2 of a 1/2 tab daily to equal your 150mg daily dose) Coreg 3.125 Mg Tabs (Carvedilol) ..... One tab. twice daily Lasix 20 Mg Tabs (Furosemide) ..... 1 tablet by mouth daily Aspirin 81 Mg Chew (Aspirin) ..... One tab. daily BP today: 126/88 Prior BP: 129/84 (10/18/2008) C ardiac Cath: PREDOMINANTLY NONISCHEMIC CARDIOMYOPATHY 2 + MITRAL REGURG E LEVATED LEFT VENTRICULAR DIASTOLIC VOLUME M ODERATE GLOBAL DYS. (04/27/2006) C arotid Doppler/Duplex: normal: [facility] (07/28/2006) C HOL: 239 (04/16/2009) LDL: 151 (04/16/2009) HDL: 50 (04/16/2009) T (04/16/2009) H gb: 13.4 (04/16/2009) HCT: 40.4 (04/16/2009) RBC: 4.47 (04/16/2009) WBC: 9.9 (04/16/2009) B UN: 11 (04/16/2009) Creat: 1.05 (04/16/2009) Glucose: 79 (04/16/2009) N a+: 137 (04/16/2009) K+: 4.3 (04/16/2009) Cl: 101 (04/16/2009) TSH: 1.86 (04/16/2009) T4 (total): 11.0 (04/16/2009) Fox Pack MD 6 month follow-up: H er updated medication list for this problem includes: Amiodarone Hcl 200 Mg Tabs (Amiodarone hcl) ..... Take 1/2 & 1/2 of a 1/2 tab daily to equal your 150mg daily dose) Coreg 3.125 Mg Tabs (Carvedilol) ..... One tab. twice daily Aspirin 81 Mg Chew (Aspirin) ..... One tab. daily Xanax 0.25 Mg Tabs (Alprazolam) ..... As needed BP today: 126/88 Prior BP: 129/84 (10/18/2008) H gb: 13.4 (04/16/2009) HCT: 40.4 (04/16/2009) RBC: 4.47 (04/16/2009) WBC: 9.9 (04/16/2009) B UN: 11 (04/16/2009) Creat: 1.05 (04/16/2009) Glucose: 79 (04/16/2009) N a+: 137 (04/16/2009) K+: 4.3 (04/16/2009) Cl: 101 (04/16/2009) Calcium: 8.7 (04/16/2009) TSH: 1.86 (04/16/2009) T4 (total): 11.0 (04/16/2009) H olter Monitor: SR-ST HR 70-156 F REQ VE WITH 6373 PAIRS AND 32 RUNS OF V-TACH B [id number] 1 2 DIARY EVENTS NOTED WITH STRIPS SAVED (08/04/2006) H olter Monitor Comments: SR with ST rates from 77-116bpm. Very frequent VE beats with 3292 johnathan and 9 runs V tach. Longest run 3 beats @ 171bpm. Fastest run 3 beats @ 186bpm. 822 Bigeminy and 260 quadrigeminy VE episodes noted. 4 isolated SVE beats with no pairs or runs noted. 4 diary events noted strips saved. [facility] (07/10/2006) E chocardiogram: Mild LV systolic dysfunction. EF 46%. RVE. Mild lateral & apical wall hypokinesis compatible with ischemia or infarction. Mild MR & TR. RVSP 31mmHg. RV catheter. Compared with study 02/16/08, no significant change. [facility] (08/16/2008) C ardiac Cath: PREDOMINANTLY NONISCHEMIC CARDIOMYOPATHY 2 + MITRAL REGURG E LEVATED LEFT VENTRICULAR DIASTOLIC VOLUME M ODERATE GLOBAL DYS. (04/27/2006) Fox Pack MD 6 month follow-up: H er updated medication list for this problem includes: Coreg 3.125 Mg Tabs (Carvedilol) ..... One tab. twice daily Aspirin 81 Mg Chew (Aspirin) ..... One tab. daily Trilipix 135 Mg Cpdr (Choline fenofibrate) ..... One tab. daily - dispense as written BP today: 126/88 Prior BP: 129/84 (10/18/2008) C ardiac Cath: PREDOMINANTLY NONISCHEMIC CARDIOMYOPATHY 2 + MITRAL REGURG E LEVATED LEFT VENTRICULAR DIASTOLIC VOLUME M ODERATE GLOBAL DYS. (04/27/2006) C arotid Doppler/Duplex: normal: [facility] (07/28/2006) C HOL: 239 (04/16/2009) LDL: 151 (04/16/2009) HDL: 50 (04/16/2009) T (04/16/2009) H gb: 13.4 (04/16/2009) HCT: 40.4 (04/16/2009) RBC: 4.47 (04/16/2009) WBC: 9.9 (04/16/2009) B UN: 11 (04/16/2009) Creat: 1.05 (04/16/2009) Glucose: 79 (04/16/2009) N a+: 137 (04/16/2009) K+: 4.3 (04/16/2009) Cl: 101 (04/16/2009) TSH: 1.86 (04/16/2009) T4 (total): 11.0 (04/16/2009) Fox Pack MD 6 month follow-up: H er updated medication list for this problem includes: Coreg 3.125 Mg Tabs (Carvedilol) ..... One tab. twice daily Lasix 20 Mg Tabs (Furosemide) ..... 1 tablet by mouth daily Aspirin 81 Mg Chew (Aspirin) ..... One tab. daily BP today: 126/88 P rior BP: 129/84 (10/18/2008) Labs Reviewed: C reat: 1.05 (04/16/2009) C hol: 239 (04/16/2009) HDL: 50 (04/16/2009) LDL: 151 (04/16/2009) T (04/16/2009) Fox Pack MD f/u with pm check-le tter fxd: H er updated medication list for this problem includes: Lasix 20 Mg Tabs (Furosemide) ..... As needed Aspirin 81 Mg Chew (Aspirin) ..... One tab. daily Amiodarone Hcl Tabs (Amiodarone hcl tabs) ..... 150mg once daily Coreg 3.125 Mg Tabs (Carvedilol) ..... One tab. twice daily BP today: 129/84 Prior BP: 134/81 (04/19/2008) C ardiac Cath: PREDOMINANTLY NONISCHEMIC CARDIOMYOPATHY 2 + MITRAL REGURG E LEVATED LEFT VENTRICULAR DIASTOLIC VOLUME M ODERATE GLOBAL DYS. (04/27/2006) C arotid Doppler/Duplex: normal: [facility] (07/28/2006) Fox Pack MD f/u with pm check-le tter fxd: H er updated medication list for this problem includes: Aspirin 81 Mg Chew (Aspirin) ..... One tab. daily Coreg 3.125 Mg Tabs (Carvedilol) ..... One tab. twice daily BP today: 129/84 Prior BP: 134/81 (04/19/2008) C ardiac Cath: PREDOMINANTLY NONISCHEMIC CARDIOMYOPATHY 2 + MITRAL REGURG E LEVATED LEFT VENTRICULAR DIASTOLIC VOLUME M ODERATE GLOBAL DYS. (04/27/2006) C arotid Doppler/Duplex: normal: [facility] (07/28/2006) Fox Pack MD pt to discuss about med[employer] device recall-pmr check today: H er updated medication list for this problem includes: Aspirin 81 Mg Chew (Aspirin) ..... One tab. daily Coreg 3.125 Mg Tabs (Carvedilol) ..... One tab. twice daily BP today: 134/81 Prior BP: / () C ardiac Cath: PREDOMINANTLY NONISCHEMIC CARDIOMYOPATHY 2 + MITRAL REGURG E LEVATED LEFT VENTRICULAR DIASTOLIC VOLUME M ODERATE GLOBAL DYS. (04/27/2006) C arotid Doppler/Duplex: normal: [facility] (07/28/2006) Fox Pack MD pt to discuss about medtronic device recall-pmr check today:check today Fox Pack MD pt to discuss about medtr[employer] device recall-pmr check today:clinically well complensated. Her updated medication list for this problem includes: Lasix 20 Mg Tabs (Furosemide) ..... As needed Aspirin 81 Mg Chew (Aspirin) ..... One tab. daily Coreg 3.125 Mg Tabs (Carvedilol) ..... One tab. twice daily Orders: E KG (CPT-63243) L IPID PANEL (7640) C OMPREHENSIVE METABOLIC PANEL W/EGFR (19813) T HYROID PANEL (1420) C BC (H/H, RBC, INDICES, WBC, PLT) (1759) BP today: 134/81 Prior BP: / () C ardiac Cath: PREDOMINANTLY NONISCHEMIC CARDIOMYOPATHY 2 + MITRAL REGURG E LEVATED LEFT VENTRICULAR DIASTOLIC VOLUME M ODERATE GLOBAL DYS. (04/27/2006) C arotid Doppler/Duplex: normal: [facility] (07/28/2006) Fox Pcak MD Date Name PARTIAL THROMBOPLAST IN TIME, ACTIVATED URINALYSIS, COMPLETE W/REFLEX TO CULTURE CBC (INCLUDES DIFF/P LT) PROTHROMBIN TIME WIT H INR COMPREHENSIVE METABO LIC PANEL W/EGFR Complete Echo VITAMIN B12/FOLATE, SERUM PANEL Vitamin D, 25-Hydrox y HEMOGLOBIN A1c IRON AND TOTAL IRON BINDING CAPACITY FERRITIN CBC (INCLUDES DIFF/P LT) LIPID PANEL COMPREHENSIVE METABO LIC PANEL, W/EGFR Sleep Study Home Complete Echo COMPREHENSIVE METABO LIC PANEL W/EGFR LIPID PANEL Arterial Duplex Lowe r Extremity Bilateral Stress Test - Adenos ine Complete Echo CBC (H/H, RBC, INDIC ES, WBC, PLT) THYROID PANEL COMPREHENSIVE METABO LIC PANEL W/EGFR LIPID PANEL HISTORY OF PROCEDURES Procedure Date Procedure Name Provider Procedure Notes S tatus EKG Fox Pack MD complete d EKG Fox Pack MD complete d Pacemaker Interrogation, Remote (Tech) oFx aPck MD INTERROGATION REMOTE </90 D PET TRAINER REVIEW completed Pacemaker Interrogation, Remote (Prof) Fox Pack MD INTERROGATION EVAL REMOTE </90 D 1/2/CORPORATE TREASURY ANALYST LEAD P completed ICM Interrogation, Remote (Prof) Fox Pack MD INTERROGATION EVAL REMOTE </30 D CV MNTR SYS completed ICM Interrogation, Remote (Tech) Fox Pack MD INTERROGATION EVAL REMOTE </30 D TECH REVIEW completed EKG Fox Pack MD complete d SNOMED-CT: [id number] Current Medications Documented Fox Pack MD completed ICM Interrogation, Remote (Prof) Fox Pack MD INTERROGATION EVAL REMOTE </30 D CV MNTR SYS completed Pacemaker Interrogation, Remote (Tech) Fox Pack MD INTERROGATION REMOTE </90 D PET TRAINER REVIEW completed Pacemaker Interrogation, Remote (Prof) Fox Pack MD INTERROGATION EVAL REMOTE </90 D 1/2/CORPORATE TREASURY ANALYST LEAD P completed EKG Fox Pack MD complete d SNOMED-CT: [id number] Current Medications Documented Fox Pack MD completed SNOMED-CT: [id number] Current Medications Documented Fox Pack MD completed ICM Interrogation, Remote (Prof) Fox Pack MD INTERROGATION EVAL REMOTE </30 D CV MNTR SYS completed Pacemaker Interrogation, Remote (Tech) Fox Pack MD INTERROGATION REMOTE </90 D PET TRAINER REVIEW completed Pacemaker Interrogation, Remote (Prof) Fox Pack MD INTERROGATION EVAL REMOTE </90 D 1/2/CORPORATE TREASURY ANALYST LEAD P completed ICM Interrogation, Remote (Prof) Fox Pack MD INTERROGATION EVAL REMOTE </30 D CV MNTR SYS completed ICM Interrogation, Remote (Tech) Fox Pack MD INTERROGATION EVAL REMOTE </30 D TECH REVIEW completed ICM Interrogation, Remote (Prof) oFx Pack MD INTERROGATION EVAL REMOTE </30 D CV MNTR SYS completed ICM Interrogation, Remote (Tech) Fox Pack MD INTERROGATION EVAL REMOTE </30 D TECH REVIEW completed TI, OPTIVOL, ICM Interrogation (Office) Fox Pack MD INTERROGATION EVAL F2F IMPLANTABLE CV MNTR SYS completed AICD Programming (Multiple Lead, BI-V) Fox Pack MD PROGRM EVAL IMPLANTABLE IN PRSN CORPORATE TREASURY ANALYST LD CARD/DFB completed ICM Interrogation, Remote (Prof) Fox Pack MD INTERROGATION EVAL REMOTE </30 D CV MNTR SYS completed ICM Interrogation, Remote (Tech) Fox Pack MD INTERROGATION EVAL REMOTE </30 D TECH REVIEW completed ICM Interrogation, Remote (Prof) Fox Pack MD INTERROGATION EVAL REMOTE </30 D CV MNTR SYS completed ICM Interrogation, Remote (Tech) Fox Pack MD INTERROGATION EVAL REMOTE </30 D TECH REVIEW completed ICM Interrogation, Remote (Prof) Fox Pack MD INTERROGATION EVAL REMOTE </30 D CV MNTR SYS completed AICD Interrogation, Remote (Tech) Fox Pack MD INTERROGATION REMOTE </90 D PET TRAINER REVIEW completed AICD Interrogation, Remote (Prof) Fox Pack MD INTERROGATION EVAL REMOTE </90 D 1/2/> LD CVDFB completed ICM Interrogation, Remote (Prof) Fox Pack MD INTERROGATION EVAL REMOTE </30 D CV MNTR SYS completed ICM Interrogation, Remote (Tech) Fox Pack MD INTERROGATION EVAL REMOTE </30 D TECH REVIEW completed ICM Interrogation, Remote (Tech) Fox Pack MD INTERROGATION EVAL REMOTE </30 D TECH REVIEW completed ICM Interrogation, Remote (Prof) Fox Pack MD INTERROGATION EVAL REMOTE </30 D CV MNTR SYS completed EKG Fox Pack MD complete d
--- OUTSIDE RECORDS SUMMARY | 2024-06-16 15:56 | XMS_ITS | Referral Summary ---
Author Organization [facility] Address [address] 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 This disclosure is being madepursuant to the Care Everywhere program and may not contain all information available regarding this patient. Last updated 17.[facility] Allergies Active Allergy Reactions Criticality Noted Date [...] Description 07/13/2024 3:20 PM CDT Office Visit [facility] [address] [id number] [place] [id number] [id number]
[2024-06-16 16:39] LABS: Alanine Aminotransferase 25 U/L (6-35); Albumin Level 4.3 g/dL (3.5-5.1); Alkaline Phosphatase 65 U/L (38-126); Anion Gap 7 mmol/L (4-12); Aspartate Amino Transferase 28 U/L (14-36); Bilirubin,Total 0.5 mg/dL (0.2-1.3); Blood Urea Nitrogen 20 mg/dL (7-17); Calcium 9.7 mg/dL (8.4-10.2); Carbon Dioxide 29 mmol/L (22-30); Chloride 104 mmol/L (98-107); Estimated Glomerular Filt Rate > 60; Glucose 91 mg/dL (65-110); Potassium 4.7 mmol/L (3.4-5.0); Sodium 140 mmol/L (137-145)
[2024-06-16 16:46] LABS: Iron 73 ug/dL (37-170)
[2024-06-16 16:57] LABS: Percent Iron Saturation 25 % (20-50)
== END 2024-06-16 14:04 | disposition home or self-care (01) ==
PROVIDERS: PCP Internal Medicine; Visit Provider Internal Medicine Hematology & Oncology
DX: E83.19 Other disorders of iron metabolism (principal)
CPT/HCPCS: 36415; 80053; 81256; 82728; 83540; 83550; 85025